=== PATIENT | female | born 1950 | race African-American/Black ===

== ENCOUNTER 2016-05-24 22:55 | Emergency (ER) | payer MEDICARE, MEDICAID ==
[~2016-05-24] VITALS: Ht 152.4 cm; Wt 49.9 kg
[2016-05-24 23:13] VITALS: BP 167/79
[2016-05-25] MEDS ORDERED: KETOROLAC TROMETH 60MG/2ML VIAL IM ONE (00:45)
[2016-05-25] MEDS ORDERED: methylPREDNISolone SOD SUCC 125 MG/2 ML VL IM ONE (00:45)
== END 2016-05-25 01:25 | disposition home or self-care (01) ==
LOC: ER 23:03
DX: M54.16 Radiculopathy, lumbar region (principal); M54.30 Sciatica, unspecified side; G89.29 Other chronic pain; M54.9 Dorsalgia, unspecified; J45.909 Unspecified asthma, uncomplicated; I10 Essential (primary) hypertension; Z90.710 Acquired absence of both cervix and uterus
CPT/HCPCS: 93005; 96372; 99284; J1885; J2930

== ENCOUNTER 2016-06-30 08:03 | Emergency (ER) | payer MEDICARE, MEDICAID ==
[~2016-06-30] VITALS: Ht 152.4 cm; Wt 44.5 kg
[2016-06-30 08:22] VITALS: BP 142/85
[2016-06-30] MEDS ORDERED: KETOROLAC TROMETH 60MG/2ML VIAL IM ONE (08:45)
== END 2016-06-30 09:13 | disposition home or self-care (01) ==
LOC: ER 08:04
DX: G89.29 Other chronic pain (principal); M54.5 Low back pain; K64.9 Unspecified hemorrhoids; I10 Essential (primary) hypertension; J45.909 Unspecified asthma, uncomplicated
CPT/HCPCS: 96372; 99283; J1885

== ENCOUNTER 2016-07-28 11:15 | Emergency (ER) | payer MEDICARE, MEDICAID ==
[~2016-07-28] VITALS: Ht 152.4 cm; Wt 47.6 kg
[2016-07-28 12:04] LABS: Basophils # (auto) 0 uL; Basophils % (auto) 0.2 % (0.0-2.0); Eosinophils # (auto) 0.3 uL; Eosinophils % (auto) 2.7 % (0.0-7.0); Hematocrit 37.3 % (36.0-46.0); Hemoglobin 12.4 g/dL (12.2-16.2); Lymphocytes # (auto) 2.1 uL; Lymphocytes % (auto) 19.8 % (10.0-50.0); Mean Corpuscular Hemoglobin 28.4 pg (28.0-32.0); Mean Corpuscular Hgb Conc. 33.3 g/dL (32.0-36.0); Mean Corpuscular Volume 85.2 fL (80.0-100.0); Mean Platelet Volume 6.6 fL (7.4-10.4); Monocytes # (auto) 0.7 uL; Monocytes % (auto) 6.9 % (0.0-12.0); Neutrophils # (auto) 7.3 uL; Neutrophils % (auto) 70.4 % (37.0-80.0); Platelet Count (auto) 342 10^3/uL (140-450); White Blood Cell 10.4 10^3/uL (4.4-10.8)
[2016-07-28 12:28] LABS: Albumin 3.6 g/dL (3.4-5.0); BUN/Creatinine Ratio 26.7; Bilirubin, Total 0.4 mg/dL (0.2-1.0); Potassium 4.1 mmol/L (3.5-5.1); Total Protein 7.7 g/dL (6.4-8.2)
[2016-07-28] MEDS ORDERED: DOCUSATE SOD 100 MG CAP PO ONE (13:30)
[2016-07-28 14:23] LABS: Urine Bilirubin Negative (Negative); Urine Blood Negative /uL (Negative); Urine Color Yellow (Yellow); Urine Glucose Normal (Normal); Urine Ketone Negative (Negative); Urine Nitrite Negative (Negative); Urine RBC <1 /hpf (0 - 4); Urine Urobilinogen Normal (Negative); Urine pH 5.5 (5.0-8.0)
[2016-07-28 15:48] VITALS: BP 160/93
== END 2016-07-28 16:48 | disposition home or self-care (01) ==
LOC: ER 11:15
DX: R10.84 Generalized abdominal pain (principal); J45.909 Unspecified asthma, uncomplicated; I10 Essential (primary) hypertension; E78.5 Hyperlipidemia, unspecified; R11.2 Nausea with vomiting, unspecified; R30.0 Dysuria; K59.00 Constipation, unspecified; Z90.710 Acquired absence of both cervix and uterus; Z85.3 Personal history of malignant neoplasm of breast
CPT/HCPCS: 36415; 74176; 80053; 81001; 85025; 93005

== ENCOUNTER 2016-08-23 22:37 | Emergency (ER) | payer MEDICARE, MEDICAID ==
[~2016-08-23] VITALS: Ht 152.4 cm; Wt 40.8 kg
[2016-08-24 00:48] LABS: Basophils # (auto) 0 uL; Basophils % (auto) 0.3 % (0.0-2.0); CONDITION Y; Eosinophils # (auto) 0.1 uL; Eosinophils % (auto) 1.3 % (0.0-7.0); Hemoglobin 10.8 g/dL (12.2-16.2); Lymphocytes # (auto) 2.4 uL; Mean Corpuscular Hemoglobin 28.2 pg (28.0-32.0); Mean Corpuscular Hgb Conc. 32.8 g/dL (32.0-36.0); Mean Platelet Volume 6.7 fL (7.4-10.4); Monocytes # (auto) 0.9 uL; Monocytes % (auto) 8.7 % (0.0-12.0); Neutrophils % (auto) 66.7 % (37.0-80.0); Platelet Count (auto) 373 10^3/uL (140-450); White Blood Cell 10.4 10^3/uL (4.4-10.8)
[2016-08-24 00:56] LABS: BUN/Creatinine Ratio 19.9; Calcium 10.3 mg/dL (8.5-10.1); INR 1.08 (0.9-1.15); Partial Thromboplastin Time 30.1 sec (22.64-33.71); Potassium 4.1 mmol/L (3.5-5.1); Prothrombin Time 11.8 sec (9.37-12.3)
[2016-08-24 00:59] LABS: Bilirubin, Total 0.4 mg/dL (0.2-1.0); Total Protein 7.6 g/dL (6.4-8.2)
[2016-08-24] MEDS ORDERED: KETOROLAC TROMETH 30 MG/ML 1ML VIAL IV ONE (07:45)
[2016-08-24] MEDS ORDERED: HYDROmorphone HCL 2 MG/ML VL IV ONE (07:45)
[2016-08-24 08:05] LABS: Urine Bilirubin Negative (Negative); Urine Color Yellow (Yellow); Urine Glucose Normal (Normal); Urine Ketone Negative (Negative); Urine RBC 7 /hpf (0 - 4); Urine Urobilinogen Normal (Negative)
[2016-08-24 08:06] LABS: Urine Blood 1+ /uL (Negative); Urine Nitrite POSITIVE (Negative)
[2016-08-24] MEDS ORDERED: cefTRIAXone 1GM/50ML D5W 50 ML IV ONE (11:00)
[2016-08-24] MEDS ORDERED: LORazepam 2MG/ML-1ML VIAL IV ONE (11:30)
[2016-08-24] MEDS ORDERED: LIDOCAINE 2%HCL (LOCAL ANESTH.) INJ 20ML MDV ONE (11:55)
[2016-08-24 13:20] VITALS: BP 146/90
== END 2016-08-24 14:59 | disposition home or self-care (01) ==
LOC: ER 22:37
DX: C50.912 Malignant neoplasm of unspecified site of left female breast (principal); C79.9 Secondary malignant neoplasm of unspecified site; R20.0 Anesthesia of skin; I10 Essential (primary) hypertension; J45.909 Unspecified asthma, uncomplicated; M54.5 Low back pain; R10.9 Unspecified abdominal pain; K59.00 Constipation, unspecified; R11.2 Nausea with vomiting, unspecified
CPT/HCPCS: 36415; 71010; 72148; 80053; 81001; 82150; 83690; 85025; 85610; 85730; 96365; 96375; 99285; J0696; J1170; J1885; J2060

== ENCOUNTER 2017-08-06 18:04 | Emergency (ER) | payer MEDICARE, MEDICAID ==
[~2017-08-06] VITALS: Ht 152.4 cm; Wt 46.3 kg
[2017-08-06 18:19] VITALS: BP 143/89
[2017-08-06] MEDS ORDERED: ACETAMINOPHEN 325 MG TAB PO ONE ×2 (18:28→18:30)
[2017-08-06] MEDS ORDERED: cefTRIAXone W LIDOCAINE 1 GM IM IM ONE (19:15)
[2017-08-06] MEDS ORDERED: cefTRIAXone SOD 1,000 MG VL ONE (19:27)
[2017-08-06] MEDS ORDERED: LIDOCAINE 1% (LOCAL ANESTH.) PF 5ml SDV ONE (19:30)
[2017-08-06] MEDS ORDERED: TRIAMCINOLONE 40MG/ML 1ML VIAL IM ONE (19:30)
== END 2017-08-06 19:42 | disposition home or self-care (01) ==
LOC: ER 18:04
DX: N39.0 Urinary tract infection, site not specified (principal); Z90.710 Acquired absence of both cervix and uterus; Z85.3 Personal history of malignant neoplasm of breast
CPT/HCPCS: 93005; 96372; 99284; J0696; J3301

== ENCOUNTER 2019-04-14 09:08 | Emergency (ER) | payer MEDICARE, MEDICAID ==
[~2019-04-14] VITALS: Ht 152.4 cm; Wt 47.6 kg
[2019-04-14 09:35] VITALS: BP 127/85
== END 2019-04-14 10:34 | disposition home or self-care (01) ==
LOC: ER 09:08
DX: K64.8 Other hemorrhoids (principal); J45.909 Unspecified asthma, uncomplicated; Z90.710 Acquired absence of both cervix and uterus; Z76.0 Encounter for issue of repeat prescription

== ENCOUNTER 2020-07-16 19:40 | Inpatient (IN) | payer MEDICARE, MEDICAID ==
[~2020-07-16] VITALS: Ht 152.4 cm; Wt 42.0 kg
[2020-07-16 21:35] LABS: Basophils # (auto) 0 10 ^3/uL (0-0.2); Basophils % (auto) 0.5 % (0.0-2.0); Eosinophils # (auto) 0 10 ^3/uL (0-0.8); Eosinophils % (auto) 0.8 % (0.0-7.0); Hematocrit 34.1 % (36.0-46.0); Hemoglobin 11.7 g/dL (12.2-16.2); Lymphocytes # (auto) 0.2 10 ^3/uL (0.4-5.4); Lymphocytes % (auto) 9.1 % (10.0-50.0); Mean Corpuscular Hgb Conc. 34.2 g/dL (32.0-36.0); Mean Corpuscular Volume 108.1 fL (80.0-100.0); Monocytes # (auto) 0.2 10 ^3/uL (0-1.3); Monocytes % (auto) 8.3 % (0.0-12.0); Neutrophils # (auto) 1.8 10 ^3/uL (1.6-8.6); Neutrophils % (auto) 81.3 % (37.0-80.0); Nucleated Red Blood Cells % 0.4 %; Platelet Count (auto) 149 10^3/uL (140-450); Red Blood Cells 3.15 10^6/uL (4.0-5.20); Red Cell Distribution Width 16.2 % (11.8-14.3); White Blood Cell 2.2 10^3/uL (4.4-10.8)
[2020-07-16] MEDS ORDERED: ACETAMINOPHEN 325 MG TAB PO ONE (21:45)
[2020-07-16 21:47] LABS: Albumin 3.5 g/dL (3.4-5.0); Anion Gap 8 (5-15); Blood Urea Nitrogen 31 mg/dL (7-18); Calcium 9.8 mg/dL (8.5-10.1); Carbon Dioxide 23 mmol/L (21-32); Chloride 106 mmol/L (98-107); Glucose 121 mg/dL (74-106); Potassium 4.4 mmol/L (3.5-5.1); Sodium 137 mmol/L (136-145)
[2020-07-16 21:49] LABS: INR 1.03 (0.9-1.15); Partial Thromboplastin Time 25.3 sec (23.0-31.2)
[2020-07-16 21:54] LABS: Alanine Aminotransferase 15 U/L (13-56); Alkaline Phosphatase 49 U/L (45-117); Aspartate Aminotransferase 21 U/L (15-37); Bilirubin, Total 0.4 mg/dL (0.2-1.0); GFR African American 38 mL/min; GFR Non-African American 31 mL/min; Total Protein 8.3 g/dL (6.4-8.2)
[2020-07-16 22:18] LABS: Urine Bacteria MANY /hpf (None Seen); Urine Blood 2+ /uL (Negative); Urine Hyaline Cast FEW /lpf (0 - 2); Urine Mucus FEW (None Seen); Urine Specific Gravity 1.013 (1.001-1.035); Urine WBC 734 /hpf (0 - 5)
[2020-07-17] MEDS ORDERED: SODIUM CHLORIDE 0.9% 1,000 ML IV ONE (04:45)
[2020-07-17] MEDS ORDERED: ACETAMINOPHEN 325 MG TAB PO ONE (04:45)
[2020-07-17] MEDS ORDERED: cefTRIAXone 1GM/50ML D5W 50 ML IV ONE (05:00)
[2020-07-17] MEDS ORDERED: NITROGLYCERIN 0.4 MG SL TAB SL PRN (06:15)
[2020-07-17] MEDS ORDERED: MORPHINE SULF INJ 2 MG/ML SYRINGE 1ML IV PRN (06:15)
[2020-07-17] MEDS ORDERED: ONDANSETRON HCL 4 MG/2 ML VIAL IV PRN (06:15)
[2020-07-17] MEDS ORDERED: SODIUM CHLORIDE 0.9% 1,000 ML IV SCH (07:15)
[2020-07-17] MEDS ORDERED: dilTIAZem 25 MG/5 ML VIAL IV ONE ×2 (07:19→07:30)
[2020-07-17] MEDS: ALBUTEROL SULF 2.5 MG/0.5ML(0.5%) NEB SOLN NEB PRN (07:24)
[2020-07-17] MEDS: cefTRIAXone 1GM/50ML D5W 50 ML IV SCH (09:47)
[2020-07-17] MEDS ORDERED: ALBUTEROL SULF 2.5 MG/0.5ML(0.5%) NEB SOLN NEB PRN (10:15)
[2020-07-17] MEDS ORDERED: IPRATROPIUM BROM 0.5 MG/2.5ML INH SOL NEB PRN (10:15)
[2020-07-17 11:03] LABS: Hematocrit 29.8 % (36.0-46.0); Hemoglobin 10.4 g/dL (12.2-16.2); Red Blood Cells 2.77 10^6/uL (4.0-5.20)
[2020-07-17 11:05] LABS: Mean Corpuscular Hemoglobin 37.6 pg (28.0-32.0); Mean Corpuscular Volume 107.5 fL (80.0-100.0); Platelet Count (auto) 114 10^3/uL (140-450); Red Cell Distribution Width 15.9 % (11.8-14.3)
[2020-07-17 11:18] LABS: BUN/Creatinine Ratio 18.5; Calcium 8.4 mg/dL (8.5-10.1); Potassium 3.9 mmol/L (3.5-5.1)
[2020-07-17 11:33] LABS: Basophils % (manual) 0 (0.0-2.0); Blast Cells 0; Eosinophils % (manual) 0 (0-7); Myelocytes % 0; Promyelocytes % 0; Reactive Lymphocytes 0
[2020-07-17 12:38] LABS: Band Neutrophils % (manual) 7; Lymphocytes % (manual) 19 (10.0-50.0); Metamyelocytes % 2; Monocytes % (manual) 5 (0-12)
[2020-07-17] MEDS: BUDESONIDE (INHALATION) 0.5 MG/2 ML NEB NEB SCH (19:22)
[2020-07-17] MEDS: ATORVASTATIN 20 MG TAB PO SCH (21:22)
[2020-07-17] MEDS: MONTELUKAST SODIUM 10 MG TAB PO SCH (21:22)
[2020-07-17] MEDS: ACETAMINOPHEN 325 MG TAB PO PRN (21:31)
[2020-07-17 22:00] VITALS: BP 119/78
[2020-07-18] MEDS ORDERED: SIMV-13 PO (00:53)
[2020-07-18] MEDS ORDERED: DOCU100T15 PO (00:53)
[2020-07-18 04:36] VITALS: BP 116/72
[2020-07-18 05:23] LABS: Hemoglobin 9.8 g/dL (12.2-16.2)
[2020-07-18 05:25] LABS: Hematocrit 27.9 % (36.0-46.0); Mean Corpuscular Hemoglobin 37.6 pg (28.0-32.0); Mean Corpuscular Volume 107.3 fL (80.0-100.0); Platelet Count (auto) 131 10^3/uL (140-450); Red Cell Distribution Width 15.9 % (11.8-14.3); White Blood Cell 4.6 10^3/uL (4.4-10.8)
[2020-07-18 05:34] LABS: Basophils % (manual) 0 (0.0-2.0); Eosinophils % (manual) 0 (0-7); Metamyelocytes % 0; Promyelocytes % 0; Reactive Lymphocytes 0
[2020-07-18 05:54] LABS: BUN/Creatinine Ratio 21.7; Calcium 8.4 mg/dL (8.5-10.1)
[2020-07-18 06:41] LABS: Band Neutrophils % (manual) 32; Blast Cells 2; Lymphocytes % (manual) 21 (10.0-50.0); Monocytes % (manual) 7 (0-12); Myelocytes % 1
[2020-07-18 09:00] VITALS: BP 129/75
[2020-07-18] MEDS: BUDESONIDE (INHALATION) 0.5 MG/2 ML NEB NEB SCH ×2 (09:10→19:32)
[2020-07-18] MEDS: cefTRIAXone 1GM/50ML D5W 50 ML IV SCH (10:23)
[2020-07-18 13:00] VITALS: BP 127/87
[2020-07-18] MEDS: ACETAMINOPHEN 325 MG TAB PO PRN ×2 (15:31→21:35)
[2020-07-18] MEDS ORDERED: DOCUSATE SOD 100 MG CAP PO PRN (15:45)
[2020-07-18 16:52] VITALS: BP 131/78
[2020-07-18] MEDS: MONTELUKAST SODIUM 10 MG TAB PO SCH (21:35)
[2020-07-18] MEDS: ATORVASTATIN 20 MG TAB PO SCH (21:35)
[2020-07-18 22:00] VITALS: BP 130/82
[2020-07-19 05:00] VITALS: BP 126/76
[2020-07-19] MEDS: cefTRIAXone 1GM/50ML D5W 50 ML IV SCH (08:27)
[2020-07-19] MEDS: ACETAMINOPHEN 325 MG TAB PO PRN (08:27)
[2020-07-19 08:51] VITALS: BP 102/79
[2020-07-19 09:13] LABS: Basophils # (auto) 0 10 ^3/uL (0-0.2); Eosinophils # (auto) 0.1 10 ^3/uL (0-0.8); Lymphocytes # (auto) 0.6 10 ^3/uL (0.4-5.4); Monocytes # (auto) 0.6 10 ^3/uL (0-1.3); Neutrophils # (auto) 3.1 10 ^3/uL (1.6-8.6); White Blood Cell 4.4 10^3/uL (4.4-10.8)
[2020-07-19 09:15] LABS: Basophils % (auto) 0.8 % (0.0-2.0); Eosinophils % (auto) 2.5 % (0.0-7.0); Hematocrit 27.4 % (36.0-46.0); Hemoglobin 9.8 g/dL (12.2-16.2); Lymphocytes % (auto) 13.3 % (10.0-50.0); Mean Corpuscular Hgb Conc. 35.6 g/dL (32.0-36.0); Monocytes % (auto) 12.8 % (0.0-12.0); Neutrophils % (auto) 70.6 % (37.0-80.0); Nucleated Red Blood Cells % 0.1 %; Platelet Count (auto) 151 10^3/uL (140-450); Red Blood Cells 2.57 10^6/uL (4.0-5.20)
[2020-07-19 09:33] LABS: BUN/Creatinine Ratio 22.5; Calcium 8.7 mg/dL (8.5-10.1); Potassium 4.7 mmol/L (3.5-5.1)
[2020-07-19] MEDS: BUDESONIDE (INHALATION) 0.5 MG/2 ML NEB NEB SCH (11:14)
[2020-07-19] MEDS: ALBUTEROL SULF 2.5 MG/0.5ML(0.5%) NEB SOLN NEB PRN (11:14)
[2020-07-19 12:30] VITALS: BP 126/91
[2020-07-19] MEDS ORDERED: LEVO500T31 PO (13:12)
[2020-07-19] MEDS ORDERED: PANT40TA2 PO (13:14)
[2020-07-19] MEDS ORDERED: AMLO-496 PO (13:18)
[2020-07-19 16:30] VITALS: BP 130/86
== END 2020-07-19 20:27 | disposition home health service (06) | DRG 720 ==
LOC: ER 19:40 → TELE-CENTR 19:40 → TELE 07-17 06:14 → TELE-CENTR 07-17 21:01
PROVIDERS: ADMIT Nurse Practitioner; ATTEND Internal Medicine Nephrology
DX: A41.9 Sepsis, unspecified organism (principal); N17.0 Acute kidney failure with tubular necrosis; D61.818 Other pancytopenia; C50.919 Malignant neoplasm of unspecified site of unspecified female breast; J44.9 Chronic obstructive pulmonary disease, unspecified; N18.31 Chronic kidney disease, stage 3a; N39.0 Urinary tract infection, site not specified; K29.70 Gastritis, unspecified, without bleeding; N31.9 Neuromuscular dysfunction of bladder, unspecified; Z20.822 Contact with and (suspected) exposure to COVID-19; I12.9 Hypertensive chronic kidney disease with stage 1 through stage 4 chronic kidney disease, or unspecified chronic kidney disease; N13.6 Pyonephrosis; N32.0 Bladder-neck obstruction; Z82.49 Family history of ischemic heart disease and other diseases of the circulatory system; Z85.3 Personal history of malignant neoplasm of breast; Z90.12 Acquired absence of left breast and nipple; Z90.710 Acquired absence of both cervix and uterus
CPT/HCPCS: 36415; 71045; 74176; 76775; 80048; 80053; 81001; 83605; 83880; 84484; 85007; 85025; 85027; 85610; 85730; 87040; 87086; 87088; 87186; 87426; 93005; 94640; 96361; 96365; G0378; J0696; J2405

== ENCOUNTER 2021-08-09 16:10 | Emergency (ER) | payer MEDICARE, MEDICAID ==
[~2021-08-09] VITALS: Ht 152.4 cm; Wt 42.6 kg
[~2021-08-09 16:10] MED LIST: DOCU100T15 PO; LEVO500T31 PO; PANT40TA2 PO; SIMV-13 PO
[2021-08-09 16:55] LABS: Basophils # (auto) 0.1 10 ^3/uL (0-0.2); Basophils % (auto) 3.5 % (0.0-2.0); Eosinophils # (auto) 0.1 10 ^3/uL (0-0.8); Hematocrit 33.4 % (36.0-46.0); Hemoglobin 11.3 g/dL (12.2-16.2); Lymphocytes # (auto) 0.9 10 ^3/uL (0.4-5.4); Lymphocytes % (auto) 25.8 % (10.0-50.0); Mean Corpuscular Hemoglobin 33.9 pg (28.0-32.0); Mean Corpuscular Hgb Conc. 33.8 g/dL (32.0-36.0); Mean Corpuscular Volume 100.2 fL (80.0-100.0); Monocytes # (auto) 0.5 10 ^3/uL (0-1.3); Monocytes % (auto) 15.8 % (0.0-12.0); Neutrophils # (auto) 1.8 10 ^3/uL (1.6-8.6); Neutrophils % (auto) 52.9 % (37.0-80.0); Nucleated Red Blood Cells % 0.1 %; Red Blood Cells 3.33 10^6/uL (4.0-5.20); Red Cell Distribution Width 22.7 % (11.8-14.3); White Blood Cell 3.4 10^3/uL (4.4-10.8)
[2021-08-09 17:14] LABS: Albumin 3.1 g/dL (3.4-5.0); BUN/Creatinine Ratio 11.3; Potassium 3.7 mmol/L (3.5-5.1)
[2021-08-09] MEDS ORDERED: IPRATROPIUM BROM 0.5 MG/2.5ML INH SOL NEB ONE (17:15)
[2021-08-09] MEDS ORDERED: ALBUTEROL SULF 2.5 MG/0.5ML(0.5%) NEB SOLN NEB ONE (17:15)
[2021-08-09 17:17] LABS: Bilirubin, Total 0.4 mg/dL (0.2-1.0); Total Protein 6.4 g/dL (6.4-8.2)
[2021-08-09] MEDS ORDERED: PRED20TA2 PO (18:26)
[2021-08-09] MEDS ORDERED: AZIT500T PO (18:26)
[2021-08-09 18:42] VITALS: BP 172/96
== END 2021-08-09 18:57 | disposition home or self-care (01) ==
LOC: ER 16:10
DX: J44.1 Chronic obstructive pulmonary disease with (acute) exacerbation (principal); D75.89 Other specified diseases of blood and blood-forming organs; I10 Essential (primary) hypertension; R74.8 Abnormal levels of other serum enzymes; Z90.710 Acquired absence of both cervix and uterus
CPT/HCPCS: 36415; 71045; 80053; 83735; 83880; 84484; 85025; 93005; 94640; 99285; J7644

== ENCOUNTER 2021-08-11 17:17 | Inpatient (IN) | payer MEDICARE, MEDICAID ==
[~2021-08-11] VITALS: Ht 152.4 cm; Wt 43.9 kg
[2021-08-11 00:15] VITALS: BP 171/116
[~2021-08-11 17:17] MED LIST changes: +AZIT500T PO; +PRED20TA2 PO
[2021-08-11] MEDS ORDERED: methylPREDNISolone SOD SUCC 125 MG/2 ML VL IV ONE (18:00)
[2021-08-11 18:24] LABS: Basophils # (auto) 0 10 ^3/uL (0-0.2); Basophils % (auto) 0.2 % (0.0-2.0); Eosinophils # (auto) 0 10 ^3/uL (0-0.8); Hematocrit 30.8 % (36.0-46.0); Hemoglobin 10.5 g/dL (12.2-16.2); Lymphocytes # (auto) 0.4 10 ^3/uL (0.4-5.4); Mean Corpuscular Hemoglobin 34.5 pg (28.0-32.0); Mean Corpuscular Hgb Conc. 34.2 g/dL (32.0-36.0); Mean Corpuscular Volume 100.8 fL (80.0-100.0); Monocytes # (auto) 0.4 10 ^3/uL (0-1.3); Monocytes % (auto) 9.1 % (0.0-12.0); Neutrophils # (auto) 3.8 10 ^3/uL (1.6-8.6); Neutrophils % (auto) 82.7 % (37.0-80.0); Nucleated Red Blood Cells % 0.2 %; Red Blood Cells 3.05 10^6/uL (4.0-5.20); White Blood Cell 4.6 10^3/uL (4.4-10.8)
[2021-08-11 18:31] LABS: Albumin 3.4 g/dL (3.4-5.0); Calcium 9.2 mg/dL (8.5-10.1); Potassium 4.3 mmol/L (3.5-5.1)
[2021-08-11 18:36] LABS: BUN/Creatinine Ratio 11.2; Bilirubin, Total 0.4 mg/dL (0.2-1.0)
[2021-08-11] MEDS ORDERED: FLUT250M2 INH (20:46)
[2021-08-11] MEDS ORDERED: METH4PAK PO (20:47)
[2021-08-11] MEDS ORDERED: ONDANSETRON HCL 4 MG/2 ML VIAL IV PRN (21:45)
[2021-08-11] MEDS ORDERED: MORPHINE SULFATE INJ 2 MG/ml SYRG IV PRN (22:30)
[2021-08-11] MEDS ORDERED: NITROGLYCERIN 0.4 MG SL TAB SL PRN (22:30)
[2021-08-11] MEDS: methylPREDNISolone SOD SUCC 125 MG/2 ML VL IV SCH (22:36)
[2021-08-11] MEDS: ATORVASTATIN 20 MG TAB PO SCH (22:36)
[2021-08-12] VITALS (8 sets, daily range): BP systolic 134–216; BP diastolic 81–137
[2021-08-12] MEDS ORDERED: dilTIAZem 25 MG/5 ML VIAL IV ONE (01:15)
[2021-08-12] MEDS: ALBUTEROL SULF 2.5 MG/0.5ML(0.5%) NEB SOLN NEB PRN ×3 (01:25→14:02)
[2021-08-12] MEDS: IPRATROPIUM BROM 0.5 MG/2.5ML INH SOL NEB PRN ×3 (01:25→14:02)
[2021-08-12] MEDS ORDERED: METOPROLOL TARTRATE 25 MG TAB PO ONE (02:15)
[2021-08-12 06:16] LABS: Potassium 4.7 mmol/L (3.5-5.1)
[2021-08-12 06:23] LABS: Basophils # (auto) 0 10 ^3/uL (0-0.2); Basophils % (auto) 0.1 % (0.0-2.0); Eosinophils # (auto) 0 10 ^3/uL (0-0.8); Hematocrit 29.8 % (36.0-46.0); Lymphocytes # (auto) 0.4 10 ^3/uL (0.4-5.4); Monocytes # (auto) 0.1 10 ^3/uL (0-1.3); Neutrophils # (auto) 3.1 10 ^3/uL (1.6-8.6); Nucleated Red Blood Cells % 0.2 %; White Blood Cell 3.6 10^3/uL (4.4-10.8)
[2021-08-12 06:25] LABS: Albumin 2.9 g/dL (3.4-5.0); BUN/Creatinine Ratio 13.1; Bilirubin, Total 0.4 mg/dL (0.2-1.0); Total Protein 6.4 g/dL (6.4-8.2)
[2021-08-12 06:26] LABS: Lymphocytes % (auto) 10.4 % (10.0-50.0); Mean Corpuscular Hemoglobin 34.2 pg (28.0-32.0); Mean Corpuscular Hgb Conc. 33.6 g/dL (32.0-36.0); Monocytes % (auto) 2.7 % (0.0-12.0); Neutrophils % (auto) 86.8 % (37.0-80.0); Red Blood Cells 2.92 10^6/uL (4.0-5.20)
[2021-08-12 06:42] LABS: Red Cell Distribution Width 21.8 % (11.8-14.3)
[2021-08-12] MEDS ORDERED: amLODIPine BESYLATE 5 MG TAB PO SCH (10:00)
[2021-08-12] MEDS: ENOXAPARIN SOD 30 MG/0.3 ML SYRINGE SC SCH (10:03)
[2021-08-12] MEDS: methylPREDNISolone SOD SUCC 125 MG/2 ML VL IV SCH (10:03)
[2021-08-12] MEDS: PANTOPRAZOLE 40 MG TAB PO SCH (10:04)
[2021-08-12] MEDS: ACETAMINOPHEN 325 MG TAB PO PRN (10:11)
[2021-08-12] MEDS ORDERED: hydrALAZINE HCL 20 MG/ML VL IV ONE (11:15)
[2021-08-12] MEDS ORDERED: LORazepam 2MG/ML-1ML VIAL IV ONE (11:15)
[2021-08-12] MEDS ORDERED: IPRATROPIUM BROM 0.5 MG/2.5ML INH SOL NEB PRN (14:15)
[2021-08-12] MEDS ORDERED: NIFEdipine ER 30 MG TAB PO ONE (14:15)
[2021-08-12] MEDS ORDERED: LABETALOL HCL 5 MG/ML 4ML SYRINGE IV PRN (14:15)
[2021-08-12] MEDS ORDERED: ALBUTEROL SULF 2.5 MG/0.5ML(0.5%) NEB SOLN NEB PRN (14:15)
[2021-08-12] MEDS ORDERED: LORazepam 0.5 MG TAB PO PRN (14:15)
[2021-08-12] MEDS: SODIUM CHLORIDE 0.9% 1,000 ML IV SCH (15:42)
[2021-08-12] MEDS ORDERED: ALBU2TAB4 PO (16:23)
[2021-08-12] MEDS ORDERED: FLUT1SPR5 (16:23)
[2021-08-12] MEDS ORDERED: LISI20TA28 PO (16:23)
[2021-08-12] MEDS ORDERED: LATA0.0019 EACHEYE (16:23)
[2021-08-12] MEDS ORDERED: ASPI-543 PO (16:23)
[2021-08-12] MEDS ORDERED: ALBU108A5 IN (16:23)
[2021-08-12] MEDS ORDERED: MONT-8 PO (16:23)
[2021-08-12] MEDS ORDERED: POLY335015 PO (16:23)
[2021-08-12] MEDS ORDERED: AMLO-489 PO (16:23)
[2021-08-12] MEDS ORDERED: LETR2.5T PO (16:23)
[2021-08-12] MEDS: ALBUTEROL SULF 2.5 MG/0.5ML(0.5%) NEB SOLN NEB SCH ×2 (18:10→21:25)
[2021-08-12] MEDS: IPRATROPIUM BROM 0.5 MG/2.5ML INH SOL NEB SCH ×2 (18:11→21:25)
[2021-08-12] MEDS: BUDESONIDE (INHALATION) 0.5 MG/2 ML NEB NEB SCH (18:11)
[2021-08-12] MEDS: ATORVASTATIN 20 MG TAB PO SCH (22:50)
[2021-08-12] MEDS: methylPREDNISolone SOD SUCC 40 MG/ML VL IV SCH (22:50)
[2021-08-12] MEDS: METOPROLOL TARTRATE 25 MG TAB PO SCH (22:51)
[2021-08-13 01:11] LABS: Alcohol, Urine < 3.0 mg/dL (0-10); Amphetamine Screen, Urine NEGATIVE (NEGATIVE); Barbiturate Scree,Urine NEGATIVE (NEGATIVE); Benzodiazephine Screen, Urine NEGATIVE (NEGATIVE); Cannabinoid Screen, Urine NEGATIVE (NEGATIVE); Cocaine Screen, Urine NEGATIVE (NEGATIVE); Opiate Scree,Urine NEGATIVE (NEGATIVE); Phencyclidine Screen, Urine NEGATIVE (NEGATIVE)
[2021-08-13 01:16] LABS: Urine Bacteria MANY /hpf (None Seen); Urine Blood TRACE /uL (Negative); Urine Specific Gravity 1.012 (1.001-1.035); Urine WBC 25 /hpf (0 - 5)
[2021-08-13] MEDS: IPRATROPIUM BROM 0.5 MG/2.5ML INH SOL NEB SCH ×6 (02:46→22:12)
[2021-08-13] MEDS: ALBUTEROL SULF 2.5 MG/0.5ML(0.5%) NEB SOLN NEB SCH ×6 (02:46→22:12)
[2021-08-13 05:00] VITALS: BP 106/62
[2021-08-13 05:34] LABS: Basophils # (auto) 0 10 ^3/uL (0-0.2); Basophils % (auto) 0.1 % (0.0-2.0); Eosinophils # (auto) 0 10 ^3/uL (0-0.8); Lymphocytes # (auto) 0.4 10 ^3/uL (0.4-5.4); Lymphocytes % (auto) 7.4 % (10.0-50.0); Monocytes # (auto) 0.2 10 ^3/uL (0-1.3); Nucleated Red Blood Cells % 0.1 %
[2021-08-13 05:36] LABS: Hematocrit 30.5 % (36.0-46.0); Hemoglobin 10.5 g/dL (12.2-16.2); Mean Corpuscular Hemoglobin 34.5 pg (28.0-32.0); Mean Corpuscular Hgb Conc. 34.5 g/dL (32.0-36.0); Mean Corpuscular Volume 100.1 fL (80.0-100.0); Monocytes % (auto) 3.4 % (0.0-12.0); Neutrophils # (auto) 5.1 10 ^3/uL (1.6-8.6); Neutrophils % (auto) 89.1 % (37.0-80.0); Red Blood Cells 3.05 10^6/uL (4.0-5.20); White Blood Cell 5.7 10^3/uL (4.4-10.8)
[2021-08-13] MEDS: SODIUM CHLORIDE 0.9% 1,000 ML IV SCH ×2 (05:40→23:35)
[2021-08-13 05:43] LABS: INR 1.05 (0.9-1.15); Red Cell Distribution Width 22.2 % (11.8-14.3)
[2021-08-13 05:45] LABS: BUN/Creatinine Ratio 17.5; Calcium 9.4 mg/dL (8.5-10.1); Magnesium 2.4 mg/dL (1.6-2.6); Potassium 5.1 mmol/L (3.5-5.1)
[2021-08-13 06:00] LABS: Cholesterol 165 mg/dL (< 200); HDL Cholesterol 96 mg/dL (40-59); LDL Cholesterol 54 mg/dL (< 100); Triglycerides 65 mg/dL (< 150)
[2021-08-13] MEDS: BUDESONIDE (INHALATION) 0.5 MG/2 ML NEB NEB SCH ×2 (06:48→19:07)
[2021-08-13 09:00] VITALS: BP 103/67
[2021-08-13] MEDS: PANTOPRAZOLE 40 MG TAB PO SCH (09:32)
[2021-08-13] MEDS: METOPROLOL TARTRATE 25 MG TAB PO SCH ×2 (09:33→21:40)
[2021-08-13] MEDS: NIFEdipine ER 30 MG TAB PO SCH (09:33)
[2021-08-13] MEDS: ENOXAPARIN SOD 30 MG/0.3 ML SYRINGE SC SCH (09:34)
[2021-08-13] MEDS: methylPREDNISolone SOD SUCC 40 MG/ML VL IV SCH ×2 (09:34→21:40)
[2021-08-13] MEDS: ACETAMINOPHEN 325 MG TAB PO PRN (09:34)
[2021-08-13 13:00] VITALS: BP 147/60
[2021-08-13] MEDS: HYDROcodone-ACET 5/325MG TAB PO PRN ×2 (13:44→21:41)
[2021-08-13 16:45] VITALS: BP 103/60
[2021-08-13 21:37] VITALS: BP 126/66
[2021-08-14 05:00] VITALS: BP 131/82
[2021-08-14] MEDS: ALBUTEROL SULF 2.5 MG/0.5ML(0.5%) NEB SOLN NEB SCH ×5 (07:07→23:05)
[2021-08-14] MEDS: IPRATROPIUM BROM 0.5 MG/2.5ML INH SOL NEB SCH ×5 (07:07→23:05)
[2021-08-14 07:35] LABS: Hematocrit 32.9 % (36.0-46.0)
[2021-08-14 07:53] LABS: BUN/Creatinine Ratio 25.2; Calcium 9.1 mg/dL (8.5-10.1); Potassium 4.9 mmol/L (3.5-5.1)
[2021-08-14 09:00] VITALS: BP 152/87
[2021-08-14] MEDS: methylPREDNISolone SOD SUCC 40 MG/ML VL IV SCH (09:29)
[2021-08-14] MEDS: ENOXAPARIN SOD 30 MG/0.3 ML SYRINGE SC SCH (09:32)
[2021-08-14] MEDS: PANTOPRAZOLE 40 MG TAB PO SCH (09:32)
[2021-08-14] MEDS: METOPROLOL TARTRATE 25 MG TAB PO SCH ×2 (09:32→21:45)
[2021-08-14] MEDS: NIFEdipine ER 30 MG TAB PO SCH (09:33)
[2021-08-14] MEDS: BUDESONIDE (INHALATION) 0.5 MG/2 ML NEB NEB SCH ×2 (10:02→17:44)
[2021-08-14] MEDS ORDERED: FLEET MINERAL OIL ENEMA 133 ML PR PRN (11:15)
[2021-08-14 13:00] VITALS: BP 143/86
[2021-08-14 16:24] VITALS: BP 151/87
[2021-08-14] MEDS: SODIUM CHLORIDE 0.9% 1,000 ML IV SCH ×2 (18:18→21:43)
[2021-08-14] MEDS: HYDROcodone-ACET 5/325MG TAB PO PRN (19:49)
[2021-08-14] MEDS: LACTULOSE 20Gm/30ML SOLN PO PRN (19:49)
[2021-08-14] MEDS: DOCUSATE SOD 100 MG CAP PO SCH (21:44)
[2021-08-14 22:00] VITALS: BP 139/83
[2021-08-15] VITALS (7 sets, daily range): BP systolic 136–175; BP diastolic 84–100
[2021-08-15] MEDS: IPRATROPIUM BROM 0.5 MG/2.5ML INH SOL NEB SCH ×5 (06:38→22:30)
[2021-08-15] MEDS: ALBUTEROL SULF 2.5 MG/0.5ML(0.5%) NEB SOLN NEB SCH ×5 (06:38→22:30)
[2021-08-15 07:29] LABS: Calcium 9.8 mg/dL (8.5-10.1); Potassium 4.1 mmol/L (3.5-5.1)
[2021-08-15 07:31] LABS: BUN/Creatinine Ratio 28.7
[2021-08-15] MEDS: DOCUSATE SOD 100 MG CAP PO SCH ×2 (10:16→22:32)
[2021-08-15] MEDS: cefTRIAXone 1GM/50ML D5W 50 ML IV SCH (10:16)
[2021-08-15] MEDS: NIFEdipine ER 30 MG TAB PO SCH (10:18)
[2021-08-15] MEDS: METOPROLOL TARTRATE 25 MG TAB PO SCH ×2 (10:19→22:33)
[2021-08-15] MEDS: methylPREDNISolone SOD SUCC 40 MG/ML VL IV SCH (10:20)
[2021-08-15] MEDS: PANTOPRAZOLE 40 MG TAB PO SCH (10:20)
[2021-08-15] MEDS: ENOXAPARIN SOD 30 MG/0.3 ML SYRINGE SC SCH (10:21)
[2021-08-15] MEDS: BUDESONIDE (INHALATION) 0.5 MG/2 ML NEB NEB SCH ×2 (10:21→19:00)
[2021-08-15] MEDS: SODIUM CHLORIDE 0.9% 1,000 ML IV SCH (12:45)
[2021-08-15] MEDS ORDERED: diphenhdrAMINE HCL 50 MG/1 ML VL IV ONE (17:50)
[2021-08-15] MEDS: LACTULOSE 20Gm/30ML SOLN PO PRN (22:56)
[2021-08-15] MEDS: TEMAZEPAM 15 MG CAP PO PRN (22:57)
[2021-08-15] MEDS: HYDROcodone-ACET 5/325MG TAB PO PRN (22:57)
[2021-08-16 05:00] VITALS: BP 153/91
[2021-08-16] MEDS: BUDESONIDE (INHALATION) 0.5 MG/2 ML NEB NEB SCH ×2 (06:36→19:15)
[2021-08-16] MEDS: IPRATROPIUM BROM 0.5 MG/2.5ML INH SOL NEB SCH ×5 (06:36→22:24)
[2021-08-16] MEDS: ALBUTEROL SULF 2.5 MG/0.5ML(0.5%) NEB SOLN NEB SCH ×5 (06:37→22:24)
[2021-08-16 06:47] LABS: Chloride 110 mmol/L (98-107); Potassium 4.6 mmol/L (3.5-5.1); Sodium 140 mmol/L (136-145)
[2021-08-16 06:54] LABS: Anion Gap 8 (5-15); BUN/Creatinine Ratio 24.8; Blood Urea Nitrogen 25 mg/dL (7-18); Calcium 8.8 mg/dL (8.5-10.1); Carbon Dioxide 22 mmol/L (21-32); GFR African American 69 mL/min; GFR Non-African American 57 mL/min; Glucose 81 mg/dL (74-106)
[2021-08-16] MEDS: SODIUM CHLORIDE 0.9% 1,000 ML IV SCH (08:15)
[2021-08-16] MEDS: ACETAMINOPHEN 325 MG TAB PO PRN (08:25)
[2021-08-16 09:00] VITALS: BP 143/69
[2021-08-16] MEDS: methylPREDNISolone SOD SUCC 40 MG/ML VL IV SCH (09:08)
[2021-08-16] MEDS: cefTRIAXone 1GM/50ML D5W 50 ML IV SCH (09:08)
[2021-08-16] MEDS: METOPROLOL TARTRATE 25 MG TAB PO SCH ×2 (09:09→21:04)
[2021-08-16] MEDS: DOCUSATE SOD 100 MG CAP PO SCH ×2 (09:09→21:05)
[2021-08-16] MEDS: NIFEdipine ER 30 MG TAB PO SCH (09:09)
[2021-08-16] MEDS: PANTOPRAZOLE 40 MG TAB PO SCH (09:09)
[2021-08-16] MEDS: ENOXAPARIN SOD 30 MG/0.3 ML SYRINGE SC SCH (09:16)
[2021-08-16 13:00] VITALS: BP 147/91
[2021-08-16 17:00] VITALS: BP 120/95
[2021-08-16 22:00] VITALS: BP 150/97
[2021-08-16] MEDS: LACTULOSE 20Gm/30ML SOLN PO PRN (23:40)
[2021-08-17] MEDS: TEMAZEPAM 15 MG CAP PO PRN ×2 (01:52→22:13)
[2021-08-17 05:00] VITALS: BP 115/79
[2021-08-17] MEDS: ALBUTEROL SULF 2.5 MG/0.5ML(0.5%) NEB SOLN NEB SCH ×5 (06:15→22:35)
[2021-08-17] MEDS: IPRATROPIUM BROM 0.5 MG/2.5ML INH SOL NEB SCH ×5 (06:16→22:35)
[2021-08-17 06:20] LABS: Albumin 2.5 g/dL (3.4-5.0); Calcium 8.8 mg/dL (8.5-10.1); Potassium 4.2 mmol/L (3.5-5.1)
[2021-08-17 06:23] LABS: BUN/Creatinine Ratio 26.4
[2021-08-17] MEDS: NIFEdipine ER 30 MG TAB PO SCH (09:21)
[2021-08-17] MEDS: cefTRIAXone 1GM/50ML D5W 50 ML IV SCH (09:21)
[2021-08-17] MEDS: ENOXAPARIN SOD 30 MG/0.3 ML SYRINGE SC SCH (09:22)
[2021-08-17] MEDS: DOCUSATE SOD 100 MG CAP PO SCH ×2 (09:22→22:12)
[2021-08-17] MEDS: PANTOPRAZOLE 40 MG TAB PO SCH (09:22)
[2021-08-17] MEDS: METOPROLOL TARTRATE 25 MG TAB PO SCH ×2 (09:22→22:12)
[2021-08-17] MEDS: BUDESONIDE (INHALATION) 0.5 MG/2 ML NEB NEB SCH ×2 (10:07→22:35)
[2021-08-17 13:00] VITALS: BP 138/91
[2021-08-17] MEDS ORDERED: SODIUM PHOSPHATES 24 MEQ in SODIUM CHL 0.9% 100 ML IV ONE (13:00)
[2021-08-17] MEDS: HYDROcodone-ACET 5/325MG TAB PO PRN (15:55)
[2021-08-17 17:18] VITALS: BP 140/93
[2021-08-17 22:00] VITALS: BP 119/75
[2021-08-18 05:00] VITALS: BP 111/79
[2021-08-18] MEDS: IPRATROPIUM BROM 0.5 MG/2.5ML INH SOL NEB SCH ×5 (06:46→22:42)
[2021-08-18] MEDS: BUDESONIDE (INHALATION) 0.5 MG/2 ML NEB NEB SCH ×2 (06:46→22:42)
[2021-08-18] MEDS: ALBUTEROL SULF 2.5 MG/0.5ML(0.5%) NEB SOLN NEB SCH ×5 (06:47→22:42)
[2021-08-18 09:00] VITALS: BP 140/98
[2021-08-18] MEDS: ENOXAPARIN SOD 30 MG/0.3 ML SYRINGE SC SCH (09:11)
[2021-08-18] MEDS: DOCUSATE SOD 100 MG CAP PO SCH ×2 (09:11→22:26)
[2021-08-18] MEDS: PANTOPRAZOLE 40 MG TAB PO SCH (09:11)
[2021-08-18] MEDS: METOPROLOL TARTRATE 25 MG TAB PO SCH ×2 (09:12→22:27)
[2021-08-18] MEDS: cefTRIAXone 1GM/50ML D5W 50 ML IV SCH (09:12)
[2021-08-18] MEDS: HYDROcodone-ACET 5/325MG TAB PO PRN (09:13)
[2021-08-18] MEDS: NIFEdipine ER 30 MG TAB PO SCH (09:24)
[2021-08-18 13:00] VITALS: BP 138/90
[2021-08-18 18:00] VITALS: BP 103/79
[2021-08-18 22:00] VITALS: BP 103/79
[2021-08-18] MEDS: TEMAZEPAM 15 MG CAP PO PRN (22:27)
[2021-08-19 05:00] VITALS: BP 118/80
[2021-08-19 06:10] LABS: Hematocrit 32.4 % (36.0-46.0); Hemoglobin 11.4 g/dL (12.2-16.2); White Blood Cell 4.9 10^3/uL (4.4-10.8)
[2021-08-19 06:12] LABS: Mean Corpuscular Hemoglobin 35.8 pg (28.0-32.0); Mean Corpuscular Volume 102.3 fL (80.0-100.0); Red Blood Cells 3.17 10^6/uL (4.0-5.20)
[2021-08-19 06:16] LABS: Calcium 9.5 mg/dL (8.5-10.1); Magnesium 1.9 mg/dL (1.6-2.6); Potassium 4.6 mmol/L (3.5-5.1)
[2021-08-19 06:17] LABS: Red Cell Distribution Width 20.5 % (11.8-14.3)
[2021-08-19] MEDS: IPRATROPIUM BROM 0.5 MG/2.5ML INH SOL NEB SCH ×3 (06:18→14:08)
[2021-08-19] MEDS: ALBUTEROL SULF 2.5 MG/0.5ML(0.5%) NEB SOLN NEB SCH ×3 (06:18→14:08)
[2021-08-19] MEDS: BUDESONIDE (INHALATION) 0.5 MG/2 ML NEB NEB SCH (06:18)
[2021-08-19 06:19] LABS: Basophils % (manual) 0 (0.0-2.0); Blast Cells 0; Promyelocytes % 0
[2021-08-19 06:20] LABS: BUN/Creatinine Ratio 27.3; Phosphorus 4.4 mg/dL (2.5-4.90)
[2021-08-19 08:33] VITALS: BP 110/74
[2021-08-19] MEDS: DOCUSATE SOD 100 MG CAP PO SCH (09:48)
[2021-08-19] MEDS: METOPROLOL TARTRATE 25 MG TAB PO SCH (09:49)
[2021-08-19] MEDS: NIFEdipine ER 30 MG TAB PO SCH (09:50)
[2021-08-19] MEDS: HYDROcodone-ACET 5/325MG TAB PO PRN (09:50)
[2021-08-19] MEDS: PANTOPRAZOLE 40 MG TAB PO SCH (09:50)
[2021-08-19] MEDS: ENOXAPARIN SOD 30 MG/0.3 ML SYRINGE SC SCH (09:51)
[2021-08-19] MEDS: cefTRIAXone 1GM/50ML D5W 50 ML IV SCH (09:55)
[2021-08-19] MEDS ORDERED: NIFE1TAB30 PO (14:42)
[2021-08-19] MEDS ORDERED: MET25T PO (14:42)
[2021-08-19] MEDS ORDERED: PRED20TA2 PO (14:42)
[2021-08-19] MEDS ORDERED: MAGNESIUM SULFATE 1GM/100ML 100 ML IV ONE (14:45)
[2021-08-19] MEDS ORDERED: ALBUAER3 IN (14:45)
[2021-08-19 17:30] VITALS: BP 112/73
[2021-08-27] MEDS ORDERED: NITR-52 PO (13:34)
== END 2021-08-19 17:50 | disposition home health service (06) | DRG 140 ==
LOC: ER 17:17 → EDBD 17:17 → TELE 22:28 → TELE-WESTW 23:43
PROVIDERS: ADMIT Nurse Practitioner; ATTEND Internal Medicine
DX: J44.1 Chronic obstructive pulmonary disease with (acute) exacerbation (principal); N17.0 Acute kidney failure with tubular necrosis; N13.6 Pyonephrosis; D64.9 Anemia, unspecified; C50.919 Malignant neoplasm of unspecified site of unspecified female breast; F41.1 Generalized anxiety disorder; N18.31 Chronic kidney disease, stage 3a; N85.00 Endometrial hyperplasia, unspecified; I12.9 Hypertensive chronic kidney disease with stage 1 through stage 4 chronic kidney disease, or unspecified chronic kidney disease; K59.00 Constipation, unspecified; Z20.822 Contact with and (suspected) exposure to COVID-19; Z82.49 Family history of ischemic heart disease and other diseases of the circulatory system; Z85.3 Personal history of malignant neoplasm of breast; Z90.12 Acquired absence of left breast and nipple; Z90.710 Acquired absence of both cervix and uterus
CPT/HCPCS: 36415; 36600; 71045; 74176; 76775; 76856; 80048; 80053; 80061; 80069; 80307; 81001; 82805; 83036; 83735; 83880; 84100; 84443; 85007; 85014; 85018; 85025; 85027; 85049; 85379; 85610; 87086; 87804; 93005; 94640; 96374; 97163; G0378; J0696

== ENCOUNTER 2021-08-22 21:45 | Inpatient (IN) | payer MEDICARE, MEDICAID ==
[~2021-08-22] VITALS: Ht 152.4 cm; Wt 40.0 kg
[~2021-08-22 21:45] MED LIST changes: +ALBU108A5 IN; +ALBU2TAB4 PO; +ALBUAER3 IN; +ASPI-543 PO; -AZIT500T PO; +FLUT1SPR5; +FLUT250M2 INH; +LATA0.0019 EACHEYE; +LETR2.5T PO; -LEVO500T31 PO; +MET25T PO; +MONT-8 PO; +NIFE1TAB30 PO; +POLY335015 PO; -SIMV-13 PO
[2021-08-22 23:18] LABS: Hematocrit 30.9 % (36.0-46.0)
[2021-08-22 23:22] LABS: Hemoglobin 10.8 g/dL (12.2-16.2); Mean Corpuscular Hemoglobin 35.6 pg (28.0-32.0); Mean Corpuscular Volume 101.7 fL (80.0-100.0); Red Blood Cells 3.04 10^6/uL (4.0-5.20); Red Cell Distribution Width 17.9 % (11.8-14.3); White Blood Cell 6.1 10^3/uL (4.4-10.8)
[2021-08-22 23:26] LABS: Band Neutrophils % (manual) 0; Basophils % (manual) 0 (0.0-2.0); Blast Cells 0; Metamyelocytes % 0; Myelocytes % 0; Promyelocytes % 0; Reactive Lymphocytes 0
[2021-08-22 23:33] LABS: Albumin 3.1 g/dL (3.4-5.0); Calcium 8.2 mg/dL (8.5-10.1); Potassium 4.2 mmol/L (3.5-5.1)
[2021-08-22 23:37] LABS: BUN/Creatinine Ratio 16.7; Bilirubin, Total 0.5 mg/dL (0.2-1.0); Total Protein 6.3 g/dL (6.4-8.2)
[2021-08-23] MEDS ORDERED: ALBUTEROL SULF 2.5 MG/0.5ML(0.5%) NEB SOLN NEB ONE
[2021-08-23] MEDS ORDERED: IPRATROPIUM BROM 0.5 MG/2.5ML INH SOL NEB ONE
[2021-08-23] MEDS ORDERED: methylPREDNISolone SOD SUCC 125 MG/2 ML VL IV ONE (00:45)
[2021-08-23] MEDS ORDERED: SODIUM CHLORIDE 0.9% 500 ML IV ONE (01:00)
[2021-08-23 01:48] LABS: Eosinophils % (manual) 3 (0-7); Lymphocytes % (manual) 23 (10.0-50.0); Monocytes % (manual) 12 (0-12)
[2021-08-23 04:49] LABS: Urine Bacteria FEW /hpf (None Seen); Urine Blood 1+ /uL (Negative); Urine Specific Gravity 1.012 (1.001-1.035); Urine WBC 1424 /hpf (0 - 5); Urine WBC Clumps PRESENT /hpf (None Seen)
[2021-08-23] MEDS ORDERED: ACETAMINOPHEN 325 MG TAB PO ONE (05:45)
[2021-08-23] MEDS ORDERED: ALBUTEROL SULFATE 2 MG PO PRN (08:45)
[2021-08-23] MEDS ORDERED: POLYETHYLENE GLYCOL 17 GM PWDR PO PRN (08:45)
[2021-08-23] MEDS ORDERED: DOCUSATE SOD 100 MG CAP PO PRN ×2 (09:00→10:30)
[2021-08-23] MEDS: PANTOPRAZOLE 40 MG TAB PO SCH (09:12)
[2021-08-23] MEDS: ASPirin-EC 81 mg tab PO SCH (09:12)
[2021-08-23] MEDS: MONTELUKAST SODIUM 10 MG TAB PO SCH (09:13)
[2021-08-23] MEDS: NIFEdipine ER 30 MG TAB PO SCH (09:15)
[2021-08-23] MEDS: METOPROLOL TARTRATE 25 MG TAB PO SCH ×2 (09:16→22:00)
[2021-08-23] MEDS: methylPREDNISolone SOD SUCC 125 MG/2 ML VL IV SCH ×3 (09:20→21:25)
[2021-08-23] MEDS: LETROZOLE 2.5 MG PO SCH (09:29)
[2021-08-23] MEDS ORDERED: ALBUTEROL SULF 2.5 MG/0.5ML(0.5%) NEB SOLN NEB PRN (09:30)
[2021-08-23] MEDS: FLUTICASONE PROP NASAL SPR 0.05 % (50MCG) 16GM SCH (10:00)
[2021-08-23] MEDS: cefTRIAXone 1GM/50ML D5W 50 ML IV SCH (11:06)
[2021-08-23] MEDS: ALBUTEROL SULF 2.5 MG/0.5ML(0.5%) NEB SOLN NEB SCH ×2 (11:48→18:34)
[2021-08-23] MEDS: IPRATROPIUM BROM 0.5 MG/2.5ML INH SOL NEB SCH ×2 (11:49→18:34)
[2021-08-23] MEDS ORDERED: IOHEXOL 300 MG/ML 100ML BOTTLE IJ ONE (13:49)
[2021-08-23] MEDS: SODIUM CHLOR 0.9% PF (SALINE LOCK) 10ML VIAL/SYR IV SCH ×2 (14:00→22:04)
[2021-08-23 14:20] VITALS: BP 136/75
[2021-08-23 18:00] VITALS: BP_SYST 123; BP_SYST 91; BP_DIAS 50; BP_DIAS 75
[2021-08-23 20:00] VITALS: BP 91/50
[2021-08-23 22:00] VITALS: BP 91/50
[2021-08-23] MEDS: LATANOPROST 0.005 % OPTH(EYE) SOL 2.5ML EACHEYE SCH (22:04)
[2021-08-23] MEDS: ACETAMINOPHEN 325 MG TAB PO PRN (22:37)
[2021-08-24] VITALS (7 sets, daily range): BP systolic 91–133; BP diastolic 50–76
[2021-08-24] MEDS: IPRATROPIUM BROM 0.5 MG/2.5ML INH SOL NEB SCH ×5 (00:19→23:55)
[2021-08-24] MEDS: ALBUTEROL SULF 2.5 MG/0.5ML(0.5%) NEB SOLN NEB SCH ×6 (00:19→23:55)
[2021-08-24] MEDS: methylPREDNISolone SOD SUCC 125 MG/2 ML VL IV SCH (02:52)
[2021-08-24] MEDS: SODIUM CHLOR 0.9% PF (SALINE LOCK) 10ML VIAL/SYR IV SCH ×3 (05:52→22:41)
[2021-08-24] MEDS: METOPROLOL TARTRATE 25 MG TAB PO SCH ×2 (10:00→22:42)
[2021-08-24] MEDS: LETROZOLE 2.5 MG PO SCH (10:00)
[2021-08-24] MEDS: NIFEdipine ER 30 MG TAB PO SCH (10:00)
[2021-08-24] MEDS: cefTRIAXone 1GM/50ML D5W 50 ML IV SCH (10:37)
[2021-08-24] MEDS: methylPREDNISolone SOD SUCC 40 MG/ML VL IV SCH ×2 (10:38→22:41)
[2021-08-24] MEDS: PANTOPRAZOLE 40 MG TAB PO SCH (10:38)
[2021-08-24] MEDS: ASPirin-EC 81 mg tab PO SCH (10:38)
[2021-08-24] MEDS: MONTELUKAST SODIUM 10 MG TAB PO SCH (10:38)
[2021-08-24] MEDS: FLUTICASONE PROP NASAL SPR 0.05 % (50MCG) 16GM SCH (12:41)
[2021-08-24] MEDS: ACETAMINOPHEN 325 MG TAB PO PRN (12:50)
[2021-08-24] MEDS: LATANOPROST 0.005 % OPTH(EYE) SOL 2.5ML EACHEYE SCH (22:41)
[2021-08-25] MEDS: HYDROcodone-ACET 5/325MG TAB PO PRN ×3 (00:55→20:43)
[2021-08-25 05:00] VITALS: BP 174/96
[2021-08-25] MEDS: SODIUM CHLOR 0.9% PF (SALINE LOCK) 10ML VIAL/SYR IV SCH ×3 (06:20→22:53)
[2021-08-25] MEDS: IPRATROPIUM BROM 0.5 MG/2.5ML INH SOL NEB SCH ×3 (06:49→19:48)
[2021-08-25] MEDS: ALBUTEROL SULF 2.5 MG/0.5ML(0.5%) NEB SOLN NEB SCH ×3 (06:50→19:47)
[2021-08-25 09:00] VITALS: BP 139/87
[2021-08-25] MEDS: cefTRIAXone 1GM/50ML D5W 50 ML IV SCH ×2 (09:58→10:24)
[2021-08-25] MEDS: FLUTICASONE PROP NASAL SPR 0.05 % (50MCG) 16GM SCH ×2 (09:58→10:20)
[2021-08-25] MEDS: LETROZOLE 2.5 MG PO SCH (09:59)
[2021-08-25] MEDS: NIFEdipine ER 30 MG TAB PO SCH ×2 (10:00→10:21)
[2021-08-25] MEDS: METOPROLOL TARTRATE 25 MG TAB PO SCH ×2 (10:00→10:22)
[2021-08-25] MEDS: ASPirin-EC 81 mg tab PO SCH ×2 (10:00→10:20)
[2021-08-25] MEDS: PANTOPRAZOLE 40 MG TAB PO SCH ×2 (10:00→10:22)
[2021-08-25] MEDS: MONTELUKAST SODIUM 10 MG TAB PO SCH ×2 (10:00→10:22)
[2021-08-25] MEDS: methylPREDNISolone SOD SUCC 40 MG/ML VL IV SCH ×2 (10:02→22:53)
[2021-08-25 12:57] VITALS: BP 156/100
[2021-08-25 17:00] VITALS: BP 135/83
[2021-08-25] MEDS ORDERED: ERTAPENEM SOD INJ 1 GM in SODIUM CHL 0.9% 50 ML IV ONE (17:00)
[2021-08-25 21:00] VITALS: BP 139/84
[2021-08-25] MEDS: LATANOPROST 0.005 % OPTH(EYE) SOL 2.5ML EACHEYE SCH (22:53)
[2021-08-26] MEDS: IPRATROPIUM BROM 0.5 MG/2.5ML INH SOL NEB SCH ×3 (00:55→11:11)
[2021-08-26] MEDS: ALBUTEROL SULF 2.5 MG/0.5ML(0.5%) NEB SOLN NEB PRN ×3 (00:55→11:11)
[2021-08-26 04:46] VITALS: BP 138/67
[2021-08-26] MEDS: SODIUM CHLOR 0.9% PF (SALINE LOCK) 10ML VIAL/SYR IV SCH ×2 (05:34→13:18)
[2021-08-26 05:59] VITALS: BP 138/67
[2021-08-26 06:04] LABS: Basophils # (auto) 0 10 ^3/uL (0-0.2); Eosinophils # (auto) 0 10 ^3/uL (0-0.8); Lymphocytes # (auto) 0.4 10 ^3/uL (0.4-5.4); Mean Corpuscular Hemoglobin 35.5 pg (28.0-32.0); Monocytes # (auto) 0.3 10 ^3/uL (0-1.3); Neutrophils # (auto) 6.3 10 ^3/uL (1.6-8.6); Neutrophils % (auto) 89.7 % (37.0-80.0)
[2021-08-26 06:10] LABS: Basophils % (auto) 0.2 % (0.0-2.0); Hematocrit 33.2 % (36.0-46.0); Hemoglobin 11.3 g/dL (12.2-16.2); Lymphocytes % (auto) 6.1 % (10.0-50.0); Mean Corpuscular Volume 104.4 fL (80.0-100.0); Nucleated Red Blood Cells % 0.2 %; Red Blood Cells 3.18 10^6/uL (4.0-5.20); Red Cell Distribution Width 19.1 % (11.8-14.3)
[2021-08-26 06:28] LABS: BUN/Creatinine Ratio 18.7; Calcium 8.9 mg/dL (8.5-10.1)
[2021-08-26 09:00] VITALS: BP 146/83
[2021-08-26 09:30] LABS: Folate (Folic Acid) > 24.00 ng/mL (5.38-24)
[2021-08-26] MEDS: methylPREDNISolone SOD SUCC 40 MG/ML VL IV SCH (09:55)
[2021-08-26] MEDS: LETROZOLE 2.5 MG PO SCH (09:55)
[2021-08-26] MEDS: METOPROLOL TARTRATE 25 MG TAB PO SCH (09:56)
[2021-08-26] MEDS ORDERED: ERTAPENEM SOD INJ 1 GM in SODIUM CHL 0.9% 50 ML IV SCH (10:00)
[2021-08-26] MEDS ORDERED: PRED20TA2 PO (10:43)
[2021-08-26] MEDS ORDERED: AMOX500T86 PO (10:46)
[2021-08-26] MEDS ORDERED: CEFI400C3 PO (10:46)
[2021-08-26 11:32] VITALS: BP 146/83
[2021-08-27] MEDS ORDERED: NITR-52 PO (13:34)
== END 2021-08-26 14:46 | disposition home or self-care (01) | DRG 140 ==
LOC: EDBD 21:45 → ER 21:45 → OVERFLOW 08-23 10:24 → EAST 08-23 17:52
PROVIDERS: ADMIT Internal Medicine; ATTEND Internal Medicine Pulmonary Disease
DX: J44.1 Chronic obstructive pulmonary disease with (acute) exacerbation (principal); E87.1 Hypo-osmolality and hyponatremia; N39.0 Urinary tract infection, site not specified; I10 Essential (primary) hypertension; R19.7 Diarrhea, unspecified; B96.20 Unspecified Escherichia coli [E. coli] as the cause of diseases classified elsewhere; Z16.12 Extended spectrum beta lactamase (ESBL) resistance; Z20.822 Contact with and (suspected) exposure to COVID-19; E78.00 Pure hypercholesterolemia, unspecified; Z85.3 Personal history of malignant neoplasm of breast; Z90.710 Acquired absence of both cervix and uterus; Z79.899 Other long term (current) drug therapy
CPT/HCPCS: 36415; 71045; 71260; 80048; 80053; 81001; 82607; 82746; 83880; 84484; 85007; 85025; 85027; 87040; 87081; 87086; 87088; 87186; 87205; 93005; 94640; 96361; 96374; G0378; J0696; J1335

== ENCOUNTER 2021-09-20 19:34 | Inpatient (IN) | payer MEDICARE, MEDICAID ==
[~2021-09-20] VITALS: Ht 154.9 cm; Wt 36.3 kg
[~2021-09-20 19:34] MED LIST changes: +NITR-52 PO
[2021-09-20] MEDS ORDERED: MAGNESIUM SULFATE 1GM/100ML 100 ML IV ONE (19:45)
[2021-09-20] MEDS ORDERED: methylPREDNISolone SOD SUCC 125 MG/2 ML VL IV ONE (19:45)
[2021-09-20] MEDS ORDERED: IPRATROPIUM BROM 0.5 MG/2.5ML INH SOL NEB ONE (19:45)
[2021-09-20] MEDS ORDERED: ALBUTEROL SULF 2.5 MG/0.5ML(0.5%) NEB SOLN NEB ONE (19:45)
[2021-09-20 20:18] LABS: White Blood Cell 2.2 10^3/uL (4.4-10.8)
[2021-09-20 20:20] LABS: Hematocrit 31.5 % (36.0-46.0); Hemoglobin 10.8 g/dL (12.2-16.2); Mean Corpuscular Hemoglobin 36.2 pg (28.0-32.0); Mean Corpuscular Hgb Conc. 34.4 g/dL (32.0-36.0); Mean Corpuscular Volume 105.1 fL (80.0-100.0); Red Blood Cells 2.99 10^6/uL (4.0-5.20); Red Cell Distribution Width 16.7 % (11.8-14.3)
[2021-09-20 20:24] LABS: Band Neutrophils % (manual) 0; Basophils % (manual) 0 (0.0-2.0); Blast Cells 0; Eosinophils % (manual) 0 (0-7); Metamyelocytes % 0; Myelocytes % 0; Promyelocytes % 0; Reactive Lymphocytes 0
[2021-09-20 20:52] LABS: Albumin 3.7 g/dL (3.4-5.0); Calcium 9.1 mg/dL (8.5-10.1); Potassium 3.4 mmol/L (3.5-5.1)
[2021-09-20 20:54] LABS: BUN/Creatinine Ratio 10.2
[2021-09-20 20:57] LABS: Bilirubin, Total 0.3 mg/dL (0.2-1.0); Total Protein 7.4 g/dL (6.4-8.2)
[2021-09-20 22:05] LABS: Lymphocytes % (manual) 66 (10.0-50.0); Monocytes % (manual) 11 (0-12)
[2021-09-20] MEDS ORDERED: POTASSIUM EFFERVESENT TAB 25 MEQ PO ONE (22:15)
[2021-09-20] MEDS ORDERED: ONDANSETRON HCL 4 MG/2 ML VIAL IV PRN (23:15)
[2021-09-20] MEDS ORDERED: MORPHINE SULFATE INJ 2 MG/ml SYRG IV PRN (23:15)
[2021-09-20] MEDS ORDERED: HYDROcodone-ACET 5/325MG TAB PO PRN (23:15)
[2021-09-21 01:48] LABS: Urine Bacteria FEW /hpf (None Seen); Urine Blood Negative /uL (Negative); Urine Hyaline Cast FEW /lpf (0 - 2); Urine Mucus FEW (None Seen); Urine Specific Gravity 1.013 (1.001-1.035); Urine WBC 3 /hpf (0 - 5)
[2021-09-21 03:53] VITALS: BP 143/90
[2021-09-21] MEDS ORDERED: MORPHINE SULFATE INJ 2 MG/ml SYRG IV PRN (04:00)
[2021-09-21] MEDS ORDERED: NITROGLYCERIN 0.4 MG SL TAB SL PRN (04:00)
[2021-09-21 05:16] LABS: Mean Corpuscular Hemoglobin 36.8 pg (28.0-32.0)
[2021-09-21 05:18] LABS: Hematocrit 29.3 % (36.0-46.0); Hemoglobin 10.1 g/dL (12.2-16.2); Mean Corpuscular Hgb Conc. 34.6 g/dL (32.0-36.0); Mean Corpuscular Volume 106.4 fL (80.0-100.0); Red Blood Cells 2.75 10^6/uL (4.0-5.20); Red Cell Distribution Width 16.1 % (11.8-14.3)
[2021-09-21 05:35] LABS: White Blood Cell 0.9 10^3/uL (4.4-10.8)
[2021-09-21 05:36] LABS: Band Neutrophils % (manual) 0; Basophils % (manual) 0 (0.0-2.0); Blast Cells 0; Eosinophils % (manual) 0 (0-7); Metamyelocytes % 0; Myelocytes % 0; Promyelocytes % 0; Reactive Lymphocytes 0
[2021-09-21 06:01] LABS: Albumin 3.2 g/dL (3.4-5.0); Calcium 8.7 mg/dL (8.5-10.1); Potassium 4.7 mmol/L (3.5-5.1)
[2021-09-21 06:03] LABS: BUN/Creatinine Ratio 11.8
[2021-09-21 06:07] LABS: Bilirubin, Total 0.2 mg/dL (0.2-1.0); Total Protein 6.6 g/dL (6.4-8.2)
[2021-09-21] MEDS: methylPREDNISolone SOD SUCC 40 MG/ML VL IV SCH ×3 (06:10→22:20)
[2021-09-21] MEDS: ALBUTEROL SULF 2.5 MG/0.5ML(0.5%) NEB SOLN NEB PRN ×2 (06:36→11:45)
[2021-09-21] MEDS: IPRATROPIUM BROM 0.5 MG/2.5ML INH SOL NEB PRN ×2 (06:36→11:44)
[2021-09-21 06:38] LABS: Lymphocytes % (manual) 33 (10.0-50.0); Monocytes % (manual) 2 (0-12)
[2021-09-21 07:41] LABS: Basophils # (auto) 0 10 ^3/uL (0-0.2); Eosinophils # (auto) 0 10 ^3/uL (0-0.8); Hemoglobin 10.2 g/dL (12.2-16.2); Lymphocytes # (auto) 0.2 10 ^3/uL (0.4-5.4); Mean Corpuscular Hemoglobin 36.5 pg (28.0-32.0); Monocytes # (auto) 0 10 ^3/uL (0-1.3)
[2021-09-21 07:43] LABS: Basophils % (auto) 0.6 % (0.0-2.0); Hematocrit 29.6 % (36.0-46.0); Lymphocytes % (auto) 29.2 % (10.0-50.0); Mean Corpuscular Hgb Conc. 34.6 g/dL (32.0-36.0); Mean Corpuscular Volume 105.2 fL (80.0-100.0); Monocytes % (auto) 4.4 % (0.0-12.0); Neutrophils # (auto) 0.5 10 ^3/uL (1.6-8.6); Neutrophils % (auto) 65.8 % (37.0-80.0); Nucleated Red Blood Cells % 0.9 %; Red Blood Cells 2.81 10^6/uL (4.0-5.20); Red Cell Distribution Width 16.5 % (11.8-14.3)
[2021-09-21 07:58] LABS: White Blood Cell 0.8 10^3/uL (4.4-10.8)
[2021-09-21] MEDS: ENOXAPARIN SOD 40 MG/0.4 ML SYRINGE SC SCH (09:17)
[2021-09-21] MEDS: DOCUSATE SOD 100 MG CAP PO PRN ×2 (09:17→20:41)
[2021-09-21] MEDS ORDERED: FAMOTIDINE (10MG/ML) 2ML VL IV SCH (10:00)
[2021-09-21] MEDS ORDERED: cefTRIAXone 1GM/50ML D5W 50 ML IV ONE (11:30)
[2021-09-21] MEDS: IPRATROPIUM BROM 0.5 MG/2.5ML INH SOL NEB SCH ×3 (15:58→22:27)
[2021-09-21] MEDS: ALBUTEROL SULF 2.5 MG/0.5ML(0.5%) NEB SOLN NEB SCH ×3 (15:59→22:27)
[2021-09-21 17:04] VITALS: BP 128/80
[2021-09-21] MEDS ORDERED: POM PO (18:03)
[2021-09-21 18:38] VITALS: BP 120/80
[2021-09-21 18:58] VITALS: BP 120/80
[2021-09-21] MEDS ORDERED: EPOETIN ALFA-EPBX 10,000 UNIT/1ML VIAL SC ONE (21:00)
[2021-09-21 22:00] VITALS: BP 129/99
[2021-09-21] MEDS: CYANOCOBALAMIN (B-12) 1000 MCG/1 ML VIAL IM SCH (23:29)
[2021-09-21] MEDS: FILGRASTIM (TBO) 300 MCG/0.5 ML SYRG SC SCH (23:47)
[2021-09-22] MEDS: IPRATROPIUM BROM 0.5 MG/2.5ML INH SOL NEB SCH ×6 (01:57→22:31)
[2021-09-22] MEDS: ALBUTEROL SULF 2.5 MG/0.5ML(0.5%) NEB SOLN NEB SCH ×6 (01:57→22:30)
[2021-09-22 05:00] VITALS: BP 156/100
[2021-09-22] MEDS: methylPREDNISolone SOD SUCC 40 MG/ML VL IV SCH ×3 (05:26→21:14)
[2021-09-22 07:01] LABS: Potassium 4.2 mmol/L (3.5-5.1)
[2021-09-22 07:07] LABS: Basophils # (auto) 0 10 ^3/uL (0-0.2); Basophils % (auto) 0.1 % (0.0-2.0); Eosinophils # (auto) 0 10 ^3/uL (0-0.8); Lymphocytes # (auto) 0.4 10 ^3/uL (0.4-5.4); Monocytes # (auto) 0.6 10 ^3/uL (0-1.3); Neutrophils # (auto) 3.1 10 ^3/uL (1.6-8.6); White Blood Cell 4.1 10^3/uL (4.4-10.8)
[2021-09-22 07:08] LABS: BUN/Creatinine Ratio 17.6
[2021-09-22 07:09] LABS: Bilirubin, Total 0.2 mg/dL (0.2-1.0); Calcium 8.9 mg/dL (8.5-10.1); Total Protein 6.1 g/dL (6.4-8.2)
[2021-09-22 07:10] LABS: Hematocrit 27.3 % (36.0-46.0); Hemoglobin 9.7 g/dL (12.2-16.2); Lymphocytes % (auto) 8.6 % (10.0-50.0); Mean Corpuscular Hemoglobin 37.8 pg (28.0-32.0); Mean Corpuscular Hgb Conc. 35.6 g/dL (32.0-36.0); Mean Corpuscular Volume 106.2 fL (80.0-100.0); Neutrophils % (auto) 76.3 % (37.0-80.0); Nucleated Red Blood Cells % 0.6 %; Red Blood Cells 2.57 10^6/uL (4.0-5.20); Red Cell Distribution Width 16.4 % (11.8-14.3)
[2021-09-22 09:00] VITALS: BP 167/100
[2021-09-22 09:34] LABS: Folate (Folic Acid) > 24.00 ng/mL (5.38-24)
[2021-09-22] MEDS: CYANOCOBALAMIN (B-12) 1000 MCG/1 ML VIAL IM SCH (10:00)
[2021-09-22] MEDS: cefTRIAXone 1GM/50ML D5W 50 ML IV SCH (10:00)
[2021-09-22] MEDS: ENOXAPARIN SOD 40 MG/0.4 ML SYRINGE SC SCH (10:00)
[2021-09-22] MEDS: FILGRASTIM (TBO) 300 MCG/0.5 ML SYRG SC SCH (11:13)
[2021-09-22 13:00] VITALS: BP 174/108
[2021-09-22] MEDS: ACETAMINOPHEN 325 MG TAB PO PRN (13:34)
[2021-09-22] MEDS: cloNIDine HCL 0.1 MG TAB PO PRN (15:01)
[2021-09-22 17:00] VITALS: BP 137/88
[2021-09-22 20:10] VITALS: BP_SYST 135
[2021-09-22] MEDS: DOCUSATE SOD 100 MG CAP PO PRN (20:55)
[2021-09-22 22:16] VITALS: BP 133/85
[2021-09-23] VITALS (7 sets, daily range): BP systolic 134–165; BP diastolic 87–103
[2021-09-23] MEDS: ALBUTEROL SULF 2.5 MG/0.5ML(0.5%) NEB SOLN NEB SCH ×6 (02:05→22:36)
[2021-09-23] MEDS: IPRATROPIUM BROM 0.5 MG/2.5ML INH SOL NEB SCH ×6 (02:05→22:35)
[2021-09-23] MEDS: ACETAMINOPHEN 325 MG TAB PO PRN (04:14)
[2021-09-23] MEDS: methylPREDNISolone SOD SUCC 40 MG/ML VL IV SCH ×3 (05:41→21:32)
[2021-09-23 06:14] LABS: Basophils # (auto) 0 10 ^3/uL (0-0.2); Eosinophils # (auto) 0 10 ^3/uL (0-0.8); Hemoglobin 9.2 g/dL (12.2-16.2)
[2021-09-23 06:16] LABS: White Blood Cell 7.1 10^3/uL (4.4-10.8)
[2021-09-23 06:19] LABS: Mean Corpuscular Volume 107.1 fL (80.0-100.0)
[2021-09-23 06:21] LABS: Eosinophils % (auto) 0.1 % (0.0-7.0); Hematocrit 26.7 % (36.0-46.0); Lymphocytes # (auto) 0.5 10 ^3/uL (0.4-5.4); Lymphocytes % (auto) 6.8 % (10.0-50.0); Mean Corpuscular Hemoglobin 37.1 pg (28.0-32.0); Mean Corpuscular Hgb Conc. 34.6 g/dL (32.0-36.0); Monocytes # (auto) 1.1 10 ^3/uL (0-1.3); Neutrophils # (auto) 5.4 10 ^3/uL (1.6-8.6); Neutrophils % (auto) 77.1 % (37.0-80.0); Nucleated Red Blood Cells % 0.5 %; Red Blood Cells 2.49 10^6/uL (4.0-5.20); Red Cell Distribution Width 16.3 % (11.8-14.3)
[2021-09-23 06:36] LABS: Albumin 2.8 g/dL (3.4-5.0); Calcium 8.8 mg/dL (8.5-10.1); Potassium 4.5 mmol/L (3.5-5.1)
[2021-09-23 06:39] LABS: BUN/Creatinine Ratio 21.6; Bilirubin, Total 0.2 mg/dL (0.2-1.0); Total Protein 5.9 g/dL (6.4-8.2)
[2021-09-23] MEDS: cefTRIAXone 1GM/50ML D5W 50 ML IV SCH (09:52)
[2021-09-23] MEDS: CYANOCOBALAMIN (B-12) 1000 MCG/1 ML VIAL IM SCH ×2 (09:53→10:11)
[2021-09-23] MEDS: ENOXAPARIN SOD 40 MG/0.4 ML SYRINGE SC SCH (09:54)
[2021-09-23] MEDS: FILGRASTIM (TBO) 300 MCG/0.5 ML SYRG SC SCH (09:56)
[2021-09-23] MEDS: DOCUSATE SOD 100 MG CAP PO PRN (21:34)
[2021-09-23] MEDS: cloNIDine HCL 0.1 MG TAB PO PRN (21:34)
[2021-09-23] MEDS ORDERED: LATANOPROST 0.005 % OPTH(EYE) SOL 2.5ML EACHEYE SCH (22:00)
[2021-09-24] MEDS: ALBUTEROL SULF 2.5 MG/0.5ML(0.5%) NEB SOLN NEB SCH ×2 (02:35→07:15)
[2021-09-24] MEDS: IPRATROPIUM BROM 0.5 MG/2.5ML INH SOL NEB SCH ×3 (02:35→10:52)
[2021-09-24 02:45] VITALS: BP 163/95
[2021-09-24 04:36] VITALS: BP 137/88
[2021-09-24] MEDS: methylPREDNISolone SOD SUCC 40 MG/ML VL IV SCH (06:15)
[2021-09-24 07:11] LABS: Hematocrit 29.3 % (36.0-46.0); Hemoglobin 9.8 g/dL (12.2-16.2); Mean Corpuscular Hemoglobin 36.8 pg (28.0-32.0); Mean Corpuscular Hgb Conc. 33.3 g/dL (32.0-36.0); Mean Corpuscular Volume 110.6 fL (80.0-100.0); Red Blood Cells 2.65 10^6/uL (4.0-5.20); Red Cell Distribution Width 16.6 % (11.8-14.3); White Blood Cell 11.9 10^3/uL (4.4-10.8)
[2021-09-24 07:12] LABS: Albumin 2.7 g/dL (3.4-5.0); Calcium 9.3 mg/dL (8.5-10.1); Potassium 4.9 mmol/L (3.5-5.1)
[2021-09-24 07:16] LABS: BUN/Creatinine Ratio 27.2; Basophils % (manual) 0 (0.0-2.0); Bilirubin, Total 0.2 mg/dL (0.2-1.0); Blast Cells 0; Eosinophils % (manual) 0 (0-7); Metamyelocytes % 0; Myelocytes % 0; Promyelocytes % 0; Reactive Lymphocytes 0; Total Protein 5.8 g/dL (6.4-8.2)
[2021-09-24 07:57] LABS: Band Neutrophils % (manual) 4; Lymphocytes % (manual) 9 (10.0-50.0); Monocytes % (manual) 13 (0-12)
[2021-09-24] MEDS: cefTRIAXone 1GM/50ML D5W 50 ML IV SCH (08:57)
[2021-09-24 09:00] VITALS: BP 171/94
[2021-09-24] MEDS ORDERED: LACTULOSE 20Gm/30ML SOLN PO ONE (09:45)
[2021-09-24] MEDS ORDERED: NITR-87 PO (09:50)
[2021-09-24] MEDS ORDERED: PRED20TA2 PO (09:50)
[2021-09-24] MEDS ORDERED: ALBUTEROL SULF 2.5 MG/0.5ML(0.5%) NEB SOLN NEB SCH (10:00)
[2021-09-24] MEDS: ENOXAPARIN SOD 40 MG/0.4 ML SYRINGE SC SCH (10:14)
[2021-09-24] MEDS: CYANOCOBALAMIN (B-12) 1000 MCG/1 ML VIAL IM SCH (10:15)
[2021-09-24] MEDS: cloNIDine HCL 0.1 MG TAB PO PRN (10:36)
[2021-09-24 11:32] VITALS: BP 160/108
[2021-09-24] MEDS ORDERED: ACETYLCYSTEINE 20%(200MG/ML) SOL 4ML NEB SCH (14:00)
== END 2021-09-24 12:30 | disposition home or self-care (01) | DRG 140 ==
LOC: ER 19:34 → TELE 09-21 03:51 → TELE-WESTW 09-21 16:47
PROVIDERS: ADMIT Nurse Practitioner Family; ATTEND Family Medicine
DX: J44.1 Chronic obstructive pulmonary disease with (acute) exacerbation (principal); J96.21 Acute and chronic respiratory failure with hypoxia; D61.818 Other pancytopenia; E87.6 Hypokalemia; D63.8 Anemia in other chronic diseases classified elsewhere; J45.901 Unspecified asthma with (acute) exacerbation; Z20.822 Contact with and (suspected) exposure to COVID-19; E78.5 Hyperlipidemia, unspecified; I11.9 Hypertensive heart disease without heart failure; C50.919 Malignant neoplasm of unspecified site of unspecified female breast; Z79.51 Long term (current) use of inhaled steroids; Z79.899 Other long term (current) drug therapy; Z82.49 Family history of ischemic heart disease and other diseases of the circulatory system; Z87.440 Personal history of urinary (tract) infections; Z87.891 Personal history of nicotine dependence; Z90.710 Acquired absence of both cervix and uterus
CPT/HCPCS: 36415; 71045; 71275; 80053; 81001; 82607; 82728; 82746; 83615; 83735; 83880; 84484; 85007; 85025; 85027; 85379; 93005; 93970; 94640; 96365; 96375; G0378; J0696; J1447; J3490

== ENCOUNTER 2021-09-25 18:06 | Emergency (ER) | payer MEDICARE, MEDICAID ==
[~2021-09-25] VITALS: Ht 152.4 cm; Wt 33.0 kg
[~2021-09-25 18:06] MED LIST changes: +NITR-87 PO; +POM PO
[2021-09-25 19:45] LABS: Mean Corpuscular Hemoglobin 35.1 pg (28.0-32.0)
[2021-09-25 19:47] LABS: INR 0.97 (0.9-1.15)
[2021-09-25 19:49] LABS: Hemoglobin 11.8 g/dL (12.2-16.2); Mean Corpuscular Hgb Conc. 32.7 g/dL (32.0-36.0); Mean Corpuscular Volume 107.6 fL (80.0-100.0); Red Blood Cells 3.35 10^6/uL (4.0-5.20); Red Cell Distribution Width 16.2 % (11.8-14.3); White Blood Cell 23.6 10^3/uL (4.4-10.8)
[2021-09-25 19:50] LABS: Basophils % (manual) 0 (0.0-2.0); Blast Cells 0; Eosinophils % (manual) 0 (0-7); Promyelocytes % 0; Reactive Lymphocytes 0
[2021-09-25 20:18] LABS: Albumin 3.8 g/dL (3.4-5.0); BUN/Creatinine Ratio 38.9; Calcium 10.3 mg/dL (8.5-10.1); Magnesium 2.2 mg/dL (1.6-2.6); Potassium 4.2 mmol/L (3.5-5.1)
[2021-09-25 20:20] LABS: Band Neutrophils % (manual) 4; Lymphocytes % (manual) 15 (10.0-50.0); Metamyelocytes % 1; Monocytes % (manual) 12 (0-12); Myelocytes % 1
[2021-09-25 20:29] LABS: Bilirubin, Total 0.3 mg/dL (0.2-1.0); Total Protein 6.9 g/dL (6.4-8.2)
[2021-09-26 00:10] VITALS: BP 109/74
== END 2021-09-26 01:45 | disposition home or self-care (01) ==
LOC: ER 18:06
DX: J44.1 Chronic obstructive pulmonary disease with (acute) exacerbation (principal); C79.81 Secondary malignant neoplasm of breast; I10 Essential (primary) hypertension; E78.5 Hyperlipidemia, unspecified; Z90.710 Acquired absence of both cervix and uterus; Z87.891 Personal history of nicotine dependence
CPT/HCPCS: 36415; 71045; 80053; 83735; 83880; 84484; 85007; 85027; 85610; 85730; 93005

== ENCOUNTER 2021-11-06 16:07 | Emergency (ER) | payer MEDICARE, MEDICAID ==
[~2021-11-06] VITALS: Ht 152.4 cm; Wt 31.2 kg
[2021-11-06] MEDS ORDERED: ALBUTEROL SULF 2.5 MG/0.5ML(0.5%) NEB SOLN NEB ONE (17:15)
[2021-11-06] MEDS ORDERED: DexAMETHasone 4 MG TAB PO ONE (17:15)
[2021-11-06] MEDS ORDERED: IPRATROPIUM BROM 0.5 MG/2.5ML INH SOL NEB ONE (17:15)
[2021-11-06] MEDS ORDERED: ALBU108A5 IN (17:56)
[2021-11-06 18:42] VITALS: BP 124/74
[2021-11-07] MEDS ORDERED: DEX4T PO (17:27)
[2021-11-07] MEDS ORDERED: DEXA2TAB PO (17:27)
[2021-11-07] MEDS ORDERED: AZIT250T9 PO (17:29)
== END 2021-11-06 18:46 | disposition home or self-care (01) ==
LOC: ER 16:07
DX: J44.1 Chronic obstructive pulmonary disease with (acute) exacerbation (principal); I10 Essential (primary) hypertension; E78.5 Hyperlipidemia, unspecified; Z87.891 Personal history of nicotine dependence; Z90.710 Acquired absence of both cervix and uterus
CPT/HCPCS: 93005; 94640; 99283; J7644; J8540

== ENCOUNTER 2021-11-07 14:35 | Emergency (ER) | payer MEDICARE, MEDICAID ==
[~2021-11-07] VITALS: Ht 152.4 cm; Wt 40.0 kg
[2021-11-07 15:00] VITALS: BP 137/86
[2021-11-07] MEDS ORDERED: DexAMETHasone 4 MG TAB PO ONE (17:15)
[2021-11-07] MEDS ORDERED: DEX4T PO (17:27)
[2021-11-07] MEDS ORDERED: DEXA2TAB PO (17:27)
[2021-11-07] MEDS ORDERED: AZIT250T9 PO (17:29)
[2021-11-07] MEDS: ALBUTEROL SULF HFA 90MCG INH 200DOSE IN SCH ×2 (19:06→21:20)
[2021-11-07] MEDS ORDERED: ALBUTEROL SULF HFA 90MCG INH 200DOSE IN SCH (22:00)
== END 2021-11-07 21:20 | disposition home or self-care (01) ==
LOC: ER 14:39
DX: U07.1 COVID-19 (principal); I10 Essential (primary) hypertension; J44.9 Chronic obstructive pulmonary disease, unspecified; E78.5 Hyperlipidemia, unspecified; Z90.710 Acquired absence of both cervix and uterus; Z87.891 Personal history of nicotine dependence; Z79.899 Other long term (current) drug therapy; Z79.82 Long term (current) use of aspirin
CPT/HCPCS: 71045; 94640

== ENCOUNTER 2021-11-10 15:24 | Emergency (ER) | payer MEDICARE, MEDICAID ==
[~2021-11-10] VITALS: Ht 152.4 cm; Wt 30.0 kg
[~2021-11-10 15:24] MED LIST changes: +AZIT250T9 PO; +DEX4T PO; +DEXA2TAB PO
[2021-11-10 15:52] VITALS: BP 147/100
[2021-11-10 20:47] LABS: Albumin 3.2 g/dL (3.4-5.0); Calcium 9.2 mg/dL (8.5-10.1)
[2021-11-10 20:52] LABS: Bilirubin, Total 0.1 mg/dL (0.2-1.0); Total Protein 7.1 g/dL (6.4-8.2)
== END 2021-11-10 21:36 | disposition left against medical advice (07) ==
LOC: EDBD 15:24 → ER 15:24
DX: R55 Syncope and collapse (principal); I63.9 Cerebral infarction, unspecified; J44.9 Chronic obstructive pulmonary disease, unspecified; E78.5 Hyperlipidemia, unspecified; I10 Essential (primary) hypertension; Z90.710 Acquired absence of both cervix and uterus; Z87.891 Personal history of nicotine dependence
CPT/HCPCS: 36415; 70450; 71045; 80053; 85379; 93005; 99291

== ENCOUNTER 2021-12-25 08:19 | Inpatient (IN) | payer MEDICARE, MEDICAID ==
[~2021-12-25] VITALS: Ht 152.4 cm; Wt 36.1 kg
[2021-12-25] MEDS ORDERED: ALBUTEROL SULF 2.5 MG/0.5ML(0.5%) NEB SOLN NEB ONE (09:15)
[2021-12-25] MEDS ORDERED: IPRATROPIUM BROM 0.5 MG/2.5ML INH SOL NEB ONE (09:15)
[2021-12-25] MEDS ORDERED: DexAMETHasone 4 MG TAB PO ONE (09:15)
[2021-12-25 09:16] LABS: Basophils # (auto) 0 10 ^3/uL (0-0.2); Basophils % (auto) 0.2 % (0.0-2.0); Eosinophils # (auto) 0 10 ^3/uL (0-0.8); Hematocrit 41.8 % (36.0-46.0); Hemoglobin 13.8 g/dL (12.2-16.2); Lymphocytes # (auto) 0.4 10 ^3/uL (0.4-5.4); Mean Corpuscular Hgb Conc. 33.1 g/dL (32.0-36.0); Mean Corpuscular Volume 96.8 fL (80.0-100.0); Monocytes # (auto) 0.3 10 ^3/uL (0-1.3); Neutrophils # (auto) 4.7 10 ^3/uL (1.6-8.6); Neutrophils % (auto) 86.8 % (37.0-80.0); Nucleated Red Blood Cells % 0.1 %; Red Blood Cells 4.31 10^6/uL (4.0-5.20); Red Cell Distribution Width 14.7 % (11.8-14.3); White Blood Cell 5.5 10^3/uL (4.4-10.8)
[2021-12-25 09:25] LABS: Albumin 4.1 g/dL (3.4-5.0); Calcium 9.5 mg/dL (8.5-10.1); Magnesium 2.4 mg/dL (1.6-2.6); Potassium 5.3 mmol/L (3.5-5.1)
[2021-12-25 09:28] LABS: BUN/Creatinine Ratio 17.2; Bilirubin, Total 0.2 mg/dL (0.2-1.0); Total Protein 7.7 g/dL (6.4-8.2)
[2021-12-25] MEDS ORDERED: CALCIUM GLUC 1,000mg/50ml-NS 50 ML IV ONE (10:15)
[2021-12-25] MEDS ORDERED: InsuLIN REG 1unit/0.01ml Soln (100units/ml) IV ONE (10:15)
[2021-12-25] MEDS ORDERED: DEXTROSE (50%) 50ML SYRG IV ONE (10:15)
[2021-12-25] MEDS ORDERED: SODIUM ZIRCONIUM CYCL 10 GM PAK PO ONE (10:15)
[2021-12-25] MEDS ORDERED: SODIUM CHLORIDE 0.9% 1,000 ML IV ONE (12:15)
[2021-12-25] MEDS ORDERED: ONDANSETRON HCL 4 MG/2 ML VIAL IV PRN (12:15)
[2021-12-25] MEDS ORDERED: DOCUSATE SOD 100 MG CAP PO PRN (12:15)
[2021-12-25] MEDS: methylPREDNISolone SOD SUCC 125 MG/2 ML VL IV SCH ×2 (13:47→22:50)
[2021-12-25] MEDS ORDERED: HYDROcodone-ACET 5/325MG TAB PO PRN (14:00)
[2021-12-25] MEDS ORDERED: ACETAMINOPHEN 325 MG TAB PO PRN (14:00)
[2021-12-25] MEDS ORDERED: LABETALOL HCL 5 MG/ML 4ML SYRINGE IV ONE (15:45)
[2021-12-25] MEDS ORDERED: POLYETHYLENE GLYCOL 17 GM PWDR PO PRN (15:45)
[2021-12-25] MEDS: SODIUM CHLORIDE 0.9% 1,000 ML IV SCH (15:48)
[2021-12-25] MEDS ORDERED: METOPROLOL TARTRATE 25 MG TAB PO ONE (17:45)
[2021-12-25] MEDS: SALINE 0.65 % NASAL SPRAY 45ML BOTTLE EACHNOSTRI SCH ×2 (18:21→22:50)
[2021-12-25] MEDS: ALBUTEROL SULF 2.5 MG/0.5ML(0.5%) NEB SOLN NEB PRN (18:32)
[2021-12-25] MEDS: IPRATROPIUM BROM 0.5 MG/2.5ML INH SOL NEB PRN (18:32)
[2021-12-25 20:39] VITALS: BP 159/115
[2021-12-25] MEDS: LATANOPROST 0.005 % OPTH(EYE) SOL 2.5ML EACHEYE SCH (22:00)
[2021-12-25 22:45] VITALS: BP 160/95
[2021-12-25] MEDS: METOPROLOL TARTRATE 25 MG TAB PO SCH (22:51)
[2021-12-26] MEDS: ALBUTEROL SULF 2.5 MG/0.5ML(0.5%) NEB SOLN NEB PRN ×3 (00:56→07:57)
[2021-12-26] MEDS: IPRATROPIUM BROM 0.5 MG/2.5ML INH SOL NEB PRN ×3 (00:56→07:57)
[2021-12-26] MEDS: methylPREDNISolone SOD SUCC 125 MG/2 ML VL IV SCH ×3 (05:46→20:40)
[2021-12-26] MEDS: SALINE 0.65 % NASAL SPRAY 45ML BOTTLE EACHNOSTRI SCH ×4 (05:46→20:40)
[2021-12-26 05:57] VITALS: BP 160/98
[2021-12-26] MEDS: SODIUM CHLORIDE 0.9% 1,000 ML IV SCH (06:55)
[2021-12-26 09:00] VITALS: BP 155/81
[2021-12-26 09:49] LABS: Basophils # (auto) 0 10 ^3/uL (0-0.2); Eosinophils # (auto) 0 10 ^3/uL (0-0.8); Hematocrit 36.9 % (36.0-46.0); Hemoglobin 12.2 g/dL (12.2-16.2); Lymphocytes # (auto) 0.3 10 ^3/uL (0.4-5.4); Mean Corpuscular Hemoglobin 32.1 pg (28.0-32.0); Mean Corpuscular Volume 97.4 fL (80.0-100.0); Monocytes # (auto) 0.2 10 ^3/uL (0-1.3); Monocytes % (auto) 2.4 % (0.0-12.0); Neutrophils # (auto) 7.7 10 ^3/uL (1.6-8.6); Neutrophils % (auto) 93.6 % (37.0-80.0); Nucleated Red Blood Cells % 0.1 %; Red Blood Cells 3.79 10^6/uL (4.0-5.20); White Blood Cell 8.2 10^3/uL (4.4-10.8)
[2021-12-26] MEDS: IPRATROPIUM BROM 0.5 MG/2.5ML INH SOL NEB SCH ×4 (09:56→22:22)
[2021-12-26] MEDS: ALBUTEROL SULF 2.5 MG/0.5ML(0.5%) NEB SOLN NEB SCH ×4 (09:57→22:22)
[2021-12-26] MEDS ORDERED: PANTOPRAZOLE 40 MG/10 ML VIAL INJ IV SCH (10:00)
[2021-12-26] MEDS ORDERED: ENOXAPARIN SOD 40 MG/0.4 ML SYRINGE SC SCH (10:00)
[2021-12-26] MEDS ORDERED: PANTOPRAZOLE 40 MG TAB PO SCH (10:00)
[2021-12-26 10:16] LABS: Potassium 5.3 mmol/L (3.5-5.1)
[2021-12-26 10:34] LABS: Albumin 3.3 g/dL (3.4-5.0); BUN/Creatinine Ratio 22.6; Bilirubin, Total 0.3 mg/dL (0.2-1.0); Calcium 8.4 mg/dL (8.5-10.1); Total Protein 6.4 g/dL (6.4-8.2)
[2021-12-26] MEDS: ASPirin-EC 81 mg tab PO SCH (11:01)
[2021-12-26] MEDS: NIFEdipine ER 30 MG TAB PO SCH (11:02)
[2021-12-26] MEDS: MONTELUKAST SODIUM 10 MG TAB PO SCH (11:03)
[2021-12-26] MEDS: METOPROLOL TARTRATE 25 MG TAB PO SCH ×2 (11:03→20:41)
[2021-12-26] MEDS: LETROZOLE 2.5 MG PO SCH (11:07)
[2021-12-26 13:00] VITALS: BP 161/97
[2021-12-26] MEDS ORDERED: SENNA 8.6 MG TAB PO PRN (13:45)
[2021-12-26 17:00] VITALS: BP 201/111
[2021-12-26] MEDS: hydrALAZINE HCL 20 MG/ML VL IV PRN (17:15)
[2021-12-26] MEDS: LATANOPROST 0.005 % OPTH(EYE) SOL 2.5ML EACHEYE SCH (20:39)
[2021-12-26] MEDS: MORPHINE SULFATE INJ 2 MG/ml SYRG IV PRN (20:42)
[2021-12-26 21:43] VITALS: BP 135/84
[2021-12-27] VITALS (20 sets, daily range): BP systolic 118–206; BP diastolic 68–112
[2021-12-27] MEDS: ALBUTEROL SULF 2.5 MG/0.5ML(0.5%) NEB SOLN NEB SCH ×5 (06:27→22:13)
[2021-12-27] MEDS: IPRATROPIUM BROM 0.5 MG/2.5ML INH SOL NEB SCH ×5 (06:27→22:13)
[2021-12-27] MEDS: SALINE 0.65 % NASAL SPRAY 45ML BOTTLE EACHNOSTRI SCH ×4 (06:37→22:00)
[2021-12-27] MEDS: methylPREDNISolone SOD SUCC 125 MG/2 ML VL IV SCH ×3 (06:37→22:06)
[2021-12-27] MEDS: METOPROLOL TARTRATE 25 MG TAB PO SCH ×2 (09:53→22:00)
[2021-12-27] MEDS: NIFEdipine ER 30 MG TAB PO SCH (09:53)
[2021-12-27] MEDS: MONTELUKAST SODIUM 10 MG TAB PO SCH (09:53)
[2021-12-27] MEDS: ASPirin-EC 81 mg tab PO SCH (09:53)
[2021-12-27] MEDS: LETROZOLE 2.5 MG PO SCH (09:54)
[2021-12-27] MEDS ORDERED: PANTOPRAZOLE 40 MG TAB PO SCH (10:00)
[2021-12-27] MEDS ORDERED: DEXTROSE (50%) 50ML SYRG IV PRN (11:00)
[2021-12-27] MEDS ORDERED: MEROPENEM 1GM IVPB 100 ML IV ONE (11:00)
[2021-12-27 11:44] LABS: Urine Bacteria NONE SEEN /hpf (None Seen); Urine Blood Negative /uL (Negative); Urine WBC <1 /hpf (0 - 5)
[2021-12-27] MEDS: ACCU-CHEK COMFORT CURVE STRIP VI SCH ×3 (11:51→23:59)
[2021-12-27] MEDS: InsuLIN REG 1unit/0.01ml Soln (100units/ml) SC SCH ×3 (11:52→23:59)
[2021-12-27] MEDS: SODIUM CHLORIDE 0.9% 1,000 ML IV SCH (12:33)
[2021-12-27] MEDS: hydrALAZINE HCL 20 MG/ML VL IV PRN (12:42)
[2021-12-27] MEDS: LORazepam 2MG/ML-1ML VIAL IV PRN ×2 (14:29→23:38)
[2021-12-27] MEDS: MEROPENEM 1GM IVPB 100 ML IV SCH (21:33)
[2021-12-27] MEDS ORDERED: ENOXAPARIN SOD 30 MG/0.3 ML SYRINGE SC SCH (22:00)
[2021-12-27] MEDS: LATANOPROST 0.005 % OPTH(EYE) SOL 2.5ML EACHEYE SCH (22:00)
[2021-12-28] VITALS (41 sets, daily range): BP systolic 86–169; BP diastolic 48–95
[2021-12-28 04:14] LABS: Basophils # (auto) 0 10 ^3/uL (0-0.2); Basophils % (auto) 0.2 % (0.0-2.0); Eosinophils # (auto) 0 10 ^3/uL (0-0.8); Hemoglobin 12.9 g/dL (12.2-16.2); Lymphocytes # (auto) 0.2 10 ^3/uL (0.4-5.4); Lymphocytes % (auto) 3.3 % (10.0-50.0); Mean Corpuscular Hemoglobin 32.3 pg (28.0-32.0); Monocytes # (auto) 0.2 10 ^3/uL (0-1.3); Monocytes % (auto) 3.3 % (0.0-12.0); Neutrophils # (auto) 4.9 10 ^3/uL (1.6-8.6); Neutrophils % (auto) 93.2 % (37.0-80.0); Nucleated Red Blood Cells % 0.1 %; Red Blood Cells 3.98 10^6/uL (4.0-5.20); Red Cell Distribution Width 15.4 % (11.8-14.3); White Blood Cell 5.2 10^3/uL (4.4-10.8)
[2021-12-28] MEDS: SODIUM CHLORIDE 0.9% 1,000 ML IV SCH ×2 (04:16→14:13)
[2021-12-28 04:40] LABS: Potassium 5.3 mmol/L (3.5-5.1)
[2021-12-28 04:48] LABS: Albumin 3.6 g/dL (3.4-5.0); BUN/Creatinine Ratio 46.5; Bilirubin, Total 0.3 mg/dL (0.2-1.0); Total Protein 6.9 g/dL (6.4-8.2)
[2021-12-28 04:52] LABS: INR 1.01 (0.9-1.15); Partial Thromboplastin Time 34.7 sec (24.6-33.4)
[2021-12-28] MEDS: methylPREDNISolone SOD SUCC 125 MG/2 ML VL IV SCH ×3 (05:44→21:40)
[2021-12-28] MEDS: SALINE 0.65 % NASAL SPRAY 45ML BOTTLE EACHNOSTRI SCH ×4 (05:52→21:56)
[2021-12-28] MEDS: ACCU-CHEK COMFORT CURVE STRIP VI SCH ×4 (05:53→23:52)
[2021-12-28] MEDS: InsuLIN REG 1unit/0.01ml Soln (100units/ml) SC SCH ×4 (06:00→23:52)
[2021-12-28] MEDS: IPRATROPIUM BROM 0.5 MG/2.5ML INH SOL NEB SCH ×5 (06:10→22:09)
[2021-12-28] MEDS: ALBUTEROL SULF 2.5 MG/0.5ML(0.5%) NEB SOLN NEB SCH ×5 (06:10→22:00)
[2021-12-28] MEDS: hydrALAZINE HCL 20 MG/ML VL IV PRN ×2 (06:16→15:08)
[2021-12-28] MEDS: MEROPENEM 1GM IVPB 100 ML IV SCH ×2 (08:10→21:27)
[2021-12-28] MEDS: METOPROLOL TARTRATE 25 MG TAB PO SCH ×2 (08:19→21:53)
[2021-12-28] MEDS: LORazepam 2MG/ML-1ML VIAL IV PRN ×2 (08:52→21:28)
[2021-12-28] MEDS: ENOXAPARIN SOD 30 MG/0.3 ML SYRINGE SC SCH ×2 (13:18→21:56)
[2021-12-28] MEDS ORDERED: KETOROLAC TROMETH 30 MG/ML 1ML VIAL IV ONE (21:30)
[2021-12-28] MEDS ORDERED: LABETALOL HCL 5 MG/ML 4ML SYRINGE IV PRN (21:30)
[2021-12-28] MEDS: LATANOPROST 0.005 % OPTH(EYE) SOL 2.5ML EACHEYE SCH (21:56)
[2021-12-29] VITALS (83 sets, daily range): BP systolic 100–144; BP diastolic 55–78
[2021-12-29] MEDS: MORPHINE SULFATE INJ 2 MG/ml SYRG IV PRN (01:13)
[2021-12-29] MEDS ORDERED: LABETALOL HCL 5 MG/ML 4ML SYRINGE IV PRN (02:30)
[2021-12-29] MEDS: SODIUM CHLORIDE 0.9% 1,000 ML IV SCH (03:39)
[2021-12-29 04:45] LABS: Basophils # (auto) 0 10 ^3/uL (0-0.2); Basophils % (auto) 0.2 % (0.0-2.0); Eosinophils # (auto) 0 10 ^3/uL (0-0.8); Hematocrit 35.7 % (36.0-46.0); Hemoglobin 11.5 g/dL (12.2-16.2); Lymphocytes # (auto) 0.2 10 ^3/uL (0.4-5.4); Mean Corpuscular Hemoglobin 32.3 pg (28.0-32.0); Mean Corpuscular Hgb Conc. 32.3 g/dL (32.0-36.0); Monocytes # (auto) 0.1 10 ^3/uL (0-1.3); Monocytes % (auto) 2.9 % (0.0-12.0); Neutrophils # (auto) 4.4 10 ^3/uL (1.6-8.6); Neutrophils % (auto) 91.9 % (37.0-80.0); Nucleated Red Blood Cells % 0.4 %; Red Blood Cells 3.57 10^6/uL (4.0-5.20); Red Cell Distribution Width 15.8 % (11.8-14.3); White Blood Cell 4.8 10^3/uL (4.4-10.8)
[2021-12-29 05:00] LABS: Magnesium 2.9 mg/dL (1.6-2.6)
[2021-12-29 05:02] LABS: BUN/Creatinine Ratio 54.9
[2021-12-29 05:29] LABS: Potassium 5.6 mmol/L (3.5-5.1)
[2021-12-29] MEDS: LORazepam 2MG/ML-1ML VIAL IV PRN (05:29)
[2021-12-29] MEDS: InsuLIN REG 1unit/0.01ml Soln (100units/ml) SC SCH ×3 (05:48→19:05)
[2021-12-29] MEDS: ACCU-CHEK COMFORT CURVE STRIP VI SCH ×3 (05:48→17:28)
[2021-12-29] MEDS: SALINE 0.65 % NASAL SPRAY 45ML BOTTLE EACHNOSTRI SCH ×4 (06:00→22:00)
[2021-12-29] MEDS: ALBUTEROL SULF 2.5 MG/0.5ML(0.5%) NEB SOLN NEB SCH ×5 (06:07→22:06)
[2021-12-29] MEDS: IPRATROPIUM BROM 0.5 MG/2.5ML INH SOL NEB SCH ×5 (06:07→22:07)
[2021-12-29] MEDS: methylPREDNISolone SOD SUCC 125 MG/2 ML VL IV SCH ×2 (06:11→14:17)
[2021-12-29] MEDS ORDERED: SOD CHL 0.45% 1,000 ML IV SCH (09:45)
[2021-12-29] MEDS: METOPROLOL TARTRATE 25 MG TAB PO SCH ×2 (10:00→22:00)
[2021-12-29] MEDS ORDERED: DOXYCYCLINE 100 MG TAB/CAP PO SCH (10:00)
[2021-12-29] MEDS: ENOXAPARIN SOD 30 MG/0.3 ML SYRINGE SC SCH ×2 (10:36→22:00)
[2021-12-29] MEDS: SOD CHL 0.45% 1,000 ML IV SCH (12:26)
[2021-12-29 14:45] LABS: Alanine Aminotransferase 28 U/L (13-56); Albumin 2.9 g/dL (3.4-5.0); Anion Gap 6 (5-15); Aspartate Aminotransferase 38 U/L (15-37); BUN/Creatinine Ratio 51.8; Bilirubin, Direct < 0.1 mg/dL (0-0.2); Blood Urea Nitrogen 73 mg/dL (7-18); Calcium 7.5 mg/dL (8.5-10.1); Carbon Dioxide 18 mmol/L (21-32); Chloride 125 mmol/L (98-107); GFR African American 47 mL/min; GFR Non-African American 39 mL/min; Glucose 114 mg/dL (74-106); Sodium 149 mmol/L (136-145)
[2021-12-29 14:48] LABS: Alkaline Phosphatase 50 U/L (45-117); Bilirubin, Total 0.2 mg/dL (0.2-1.0); Total Protein 6.4 g/dL (6.4-8.2)
[2021-12-29 15:19] LABS: Urine Bacteria FEW /hpf (None Seen); Urine Blood 2+ /uL (Negative); Urine Specific Gravity 1.012 (1.001-1.035); Urine WBC 5 /hpf (0 - 5)
[2021-12-29 15:29] LABS: Potassium 5.9 mmol/L (3.5-5.1)
[2021-12-29] MEDS ORDERED: InsuLIN REG 1unit/0.01ml Soln (100units/ml) IV ONE (15:45)
[2021-12-29] MEDS ORDERED: FUROSEMIDE 20 MG/2 ML VIAL IV ONE (15:45)
[2021-12-29] MEDS ORDERED: DEXTROSE (50%) 50ML SYRG IV ONE (15:45)
[2021-12-29] MEDS ORDERED: ALBUTEROL SULF 2.5 MG/0.5ML(0.5%) NEB SOLN NEB ONE (15:45)
[2021-12-29] MEDS: OSELTAMIVIR 30 MG CAP PO SCH (22:00)
[2021-12-30] VITALS (57 sets, daily range): BP systolic 105–147; BP diastolic 43–80
[2021-12-30] MEDS: LATANOPROST 0.005 % OPTH(EYE) SOL 2.5ML EACHEYE SCH (00:10)
[2021-12-30] MEDS: SOD CHL 0.45% 1,000 ML IV SCH ×2 (00:10→11:02)
[2021-12-30] MEDS: methylPREDNISolone SOD SUCC 125 MG/2 ML VL IV SCH ×3 (00:11→13:22)
[2021-12-30] MEDS: ACCU-CHEK COMFORT CURVE STRIP VI SCH ×3 (00:11→12:00)
[2021-12-30] MEDS: InsuLIN REG 1unit/0.01ml Soln (100units/ml) SC SCH ×3 (06:00→12:00)
[2021-12-30] MEDS: SALINE 0.65 % NASAL SPRAY 45ML BOTTLE EACHNOSTRI SCH ×2 (06:00→12:01)
[2021-12-30] MEDS: IPRATROPIUM BROM 0.5 MG/2.5ML INH SOL NEB SCH ×4 (06:27→14:06)
[2021-12-30] MEDS: ALBUTEROL SULF 2.5 MG/0.5ML(0.5%) NEB SOLN NEB SCH ×4 (06:27→14:06)
[2021-12-30] MEDS: METOPROLOL TARTRATE 25 MG TAB PO SCH (09:56)
[2021-12-30] MEDS: OSELTAMIVIR 30 MG CAP PO SCH (09:57)
[2021-12-30] MEDS ORDERED: FLEET ENEMA(ADULT) 135 ML PR PRN (13:00)
[2021-12-30] MEDS ORDERED: HYDROmorphone HCL 2 MG/ML VL/or syr IV PRN (13:00)
[2021-12-30] MEDS ORDERED: LORazepam 2MG/ML-1ML VIAL IV PRN (13:00)
[2021-12-30] MEDS ORDERED: HALOPERIDOL LACTATE 5 MG/ML INJ VIAL IV PRN (13:00)
== END 2021-12-30 17:05 | DRG 140 ==
LOC: EDBD 08:19 → ER 08:19 → EDUNIT# 08:19 → OVERFLOW 12:56 → EAST 20:42 → ICU WEST 12-27 12:56 → WEST WING 12-30 16:46
PROVIDERS: ADMIT Nurse Practitioner Family; ATTEND Student in an Organized Health Care Education/Training Program
PROC: 5A09457 Assistance with Respiratory Ventilation, 24-96 Consecutive Hours, Continuous Positive Airway Pressure (ICD-10-PCS; principal; 2021-12-27)
PROC: 05H933Z Insertion of Infusion Device into Right Brachial Vein, Percutaneous Approach (ICD-10-PCS; 2021-12-29)
PROC: B54MZZA Ultrasonography of Right Upper Extremity Veins, Guidance (ICD-10-PCS; 2021-12-29)
DX: J44.1 Chronic obstructive pulmonary disease with (acute) exacerbation (principal); J96.21 Acute and chronic respiratory failure with hypoxia; G93.41 Metabolic encephalopathy; C79.51 Secondary malignant neoplasm of bone; E87.0 Hyperosmolality and hypernatremia; C50.919 Malignant neoplasm of unspecified site of unspecified female breast; N17.9 Acute kidney failure, unspecified; E87.29 Other acidosis; E86.0 Dehydration; Z20.822 Contact with and (suspected) exposure to COVID-19; Z66 Do not resuscitate; J84.9 Interstitial pulmonary disease, unspecified; E87.5 Hyperkalemia; I12.9 Hypertensive chronic kidney disease with stage 1 through stage 4 chronic kidney disease, or unspecified chronic kidney disease; J96.22 Acute and chronic respiratory failure with hypercapnia; N18.31 Chronic kidney disease, stage 3a; E78.5 Hyperlipidemia, unspecified; R91.1 Solitary pulmonary nodule; F41.9 Anxiety disorder, unspecified; Z79.811 Long term (current) use of aromatase inhibitors; Z82.49 Family history of ischemic heart disease and other diseases of the circulatory system; Z87.891 Personal history of nicotine dependence; Z90.710 Acquired absence of both cervix and uterus
CPT/HCPCS: 36415; 36600; 71045; 71250; 80048; 80053; 80076; 81001; 82010; 82805; 82962; 83605; 83735; 83880; 84132; 84484; 85025; 85610; 85730; 87040; 87081; 87086; 87426; 87804; 93005; 94640; 94644; 94660; 96374; 96375; 99291; C9113; G0378; G9035; J1815; J1885; J2185; J2405; J3490